=== PATIENT | male | born 1970 | race Caucasian/White ===

== ENCOUNTER → 2016-08-02 | Outpatient (CLI) | payer MEDICARE, OTHER ==
--- NOTE | 2016-08-02 11:17 | RADRPT ---
EXAM DATE/TIME: 08/02/2016 00:00 [facility] COMPARISON: No previous studies available for comparison. INDICATIONS : Dysphagia FLUORO TIME: 3.6 minutes IMAGE COUNT: 0 CONTRAST: Dose as prescribed by speech pathologist. MEDICAL HISTORY : None. SURGICAL HISTORY : None. ENCOUNTER: Initial ACUITY: 1 day PAIN SCORE: Non-responsive. LOCATION: Bilateral esophagus FINDINGS: A modified barium swallow was performed with speech pathology. Patient was given a variety of liquids to swallow. Normal swallowing mechanism. No visualized aspiration. For a full detailed report, see report by the speech pathologist. CONCLUSION: No visualized aspiration.. Carina Mcintosh MD on August 02, 2016 at 11:15 Board Certified Radiologist. This report was verified electronically.
== END ==
LOC: HRAD 10:01
PROVIDERS: ATTEND Family Medicine Geriatric Medicine
DX: R05 Cough (principal)
CPT/HCPCS: 74230; 92611; G8996; G8997

== ENCOUNTER 2017-06-10 12:16 | Emergency (ER) | payer MEDICARE, OTHER ==
[2017-06-10 12:17] VITALS: BP 175/93; PULSE 92; RESP 18; TEMP 97.6; O2SAT 96
[2017-06-10] MEDS ORDERED: CHLO.12%30 SWISH-SPIT (13:24)
--- NOTE | 2017-06-10 13:24 | PD ---
HPI Chief Complaint: Medical Clearance Time Seen by Provider: 12:54 Travel History International Travel<30 days: No Contact w/Intl Traveler<30days: No Traveled to known affect area: No History of Present Illness HPI Social 47-year-old man who presents to the emergency department brought in from his skilled nursing for complaints of oral infection. He is a history of quadriplegia, abdominal bullae, and aspiration. He is G-tube fed. He does not take by mouth intake at all now. Caretakers at the skilled nursing were worried about an infection in the mouth. History Past Medical History Narrative Medical Developed cold-like, quadriplegia, encephalopathic Social History Tobacco Use: No Allergies-Medications (Allergen,Severity, Reaction): Coded Allergies: Quinolones (Verified Allergy, Unknown, 06/10/17) ciprofloxacin (Verified Allergy, Unknown, 06/10/17) levofloxacin (Verified Allergy, Unknown, 06/10/17) Review of Systems ROS Limitations: Clinical Condition Physical Exam Narrative Gen.: 47-year-old man, minimally responsive, in a wheelchair. HEENT: Poor dentition with calcified plaque, marked inflammation of the gingival tissues, no appreciable abscess, no thrush. Data Data Last Documented VS Vital Signs Date Time Temp Pulse Resp B/P (MAP) Pulse Ox O2 Delivery O2 Flow Rate FiO2 06/10/17 12:17 97.6 92 18 175/93 (120) 96 Room Air [facility] Medical Decision Making Medical Screen Exam Complete: Yes Emergency Medical Condition: Yes Differential Diagnosis Gingivitis, abscess, necrotizing ulcerative gingivostomatitis, other Narrative Course Medical decision-making new para 47-year-old man, doesn't take any by mouth intake, severe dental disease with marked gingivitis. No evidence of abscess. Diagnosis Primary Impression: Gingivitis, acute, plaque induced Additional Instructions: [place] teeth twice daily to remove plaque. Use chlorhexidine rinse. You can use an oral hygiene brush to apply it given the patient's condition. I do not see any thrush, or evidence of abscess. Med/Other Pt SpecificInfo: Prescription(s) given Scripts Chlorhexidine Gluconate (Mouth) Liq (Chlorhexidine Gluconate (Mouth) Liq) 0.12% Soln 15 ML SWISH-SPIT BID, #473 ML 0 Refills Use an oral hygiene brush to apply. Prov: Freddy Blum MD 06/10/17 Disposition: 01 DISCHARGE HOME Condition: Stable Freddy Blum MD Jun 10, 2017 13:24
== END 2017-06-10 13:48 | disposition home or self-care (01) ==
LOC: NEPK 12:16
DX: K05.00 Acute gingivitis, plaque induced (principal); G82.50 Quadriplegia, unspecified
CPT/HCPCS: 99283

== ENCOUNTER 2017-06-13 18:55 | Inpatient (IN) | payer MEDICARE, OTHER ==
[~2017-06-13] VITALS: Ht 157.5 cm; Wt 94.0 kg
[~2017-06-13 18:55] MED LIST: CHLO.12%30 SWISH-SPIT
[2017-06-13 18:59] VITALS: BP 165/103; PULSE 77; RESP 14; TEMP 98.8; O2SAT 97
[2017-06-13] MEDS ORDERED: SODIUM CHLORIDE 0.9% FLUSH 10 ML FLUSH IV FLUSH PRN ×2 (19:45→23:15)
[2017-06-13 19:55] VITALS: O2SAT 98
[2017-06-13 19:57] VITALS: BP 156/104; PULSE 78; RESP 16; O2SAT 98
[2017-06-13] MEDS ORDERED: DIATRIZOATE MEGLUM/DIATRIZOATE SOD 9 ML CUP ONE (20:09)
[2017-06-13 20:29] LABS: AUTOMATED NEUTROPHIL # 2.9 TH/MM3 (1.8-7.7); BASOPHIL % 0.5 % (0.0-2.0); EOSINOPHIL # 0.2 TH/MM3 (0-0.4); EOSINOPHIL % 3.9 % (0.0-4.0); HEMO FLAGS DIFF FINAL; LYMPH % 20.2 % (9.0-44.0); MEAN CELL VOLUME 97.9 FL (80.0-100.0); MEAN CORPUSCULAR HEMOGLOBIN 33.6 PG (27.0-34.0); MEAN CORPUSCULAR HGB CONC 34.3 % (32.0-36.0); MONO % 17.9 % (0.0-8.0); NEUT % 57.5 % (16.0-70.0); PLATELET COUNT 309 TH/MM3 (150-450); RED CELL DISTRIBUTION WIDTH 13.1 % (11.6-17.2)
[2017-06-13 20:38] LABS: APTT (PATIENT) 32.1 SEC (24.3-30.1); PROTHROMBIN TIME - PATIENT 10.7 SEC (9.8-11.6)
[2017-06-13 20:50] LABS: ANION GAP 3 MEQ/L (5-15); AST (GOT) 33 U/L (15-37); BLOOD UREA NITROGEN 11 MG/DL (7-18); CHLORIDE 97 MEQ/L (98-107); GLOMERULAR FILTRATION RATE 133 ML/MIN (>89); POTASSIUM 4.4 MEQ/L (3.5-5.1); SODIUM (NA) 131 MEQ/L (136-145)
[2017-06-13 20:54] LABS: ALKALINE PHOSPHATASE 179 U/L (45-117); ALT (GPT) 41 U/L (12-78); TOTAL BILIRUBIN ADULT 0.2 MG/DL (0.2-1.0)
--- NOTE | 2017-06-13 20:56 | RADRPT ---
EXAM DATE/TIME: 06/13/2017 20:21 [facility] COMPARISON: No previous studies available for comparison. INDICATIONS : Cough and congestion. MEDICAL HISTORY : None. SURGICAL HISTORY : None. ENCOUNTER: Initial ACUITY: 3 days PAIN SCORE: Non-responsive. LOCATION: Bilateral chest FINDINGS: There is increased density and loss of delineation of the central bronchopulmonary markings and bilat eral central air bronchograms suggesting either engorged vessels with alveolar edema or bilateral blayne tral infiltrates. The heart is mildly enlarged. Both hemidiaphragms well delineated. CONCLUSION: Bilateral central lung opacities, alveolar edema versus bilateral infiltrates. Ronal Rosales MD on June 13, 2017 at 20:53 Board Certified Radiologist. This report was verified electronically.
[2017-06-13 21:25] LABS: BLOOD, URINE NEG (NEG); COMMENT (UR) CULT NOT INDICATED; CULTURE IF INDICATED CULT NOT INDICATED; GLUCOSE,URINE NEG (NEG); KETONE, URINE NEG (NEG); NITRITE,URINE NEG (NEG); URINE COLOR YELLOW (YELLW/STRAW)
[2017-06-13] MEDS ORDERED: IOHEXOL 350 MG/ML 10 ML VIAL (for RAD DIAG) IVCONTRAST ONE (21:28)
--- NOTE | 2017-06-13 22:05 | RADRPT ---
EXAM DATE/TIME: 06/13/2017 21:24 [facility] COMPARISON: No previous studies available for comparison. INDICATIONS : Abdominal distention. IV CONTRAST: 97 cc Omnipaque 350 (iohexol) IV ORAL CONTRAST: Prescribed oral contrast ingested. RADIATION DOSE: 13.11 CTDIvol (mGy) MEDICAL HISTORY : Non-responsive. SURGICAL HISTORY : Non-responsive. ENCOUNTER: Initial ACUITY: 1 day PAIN SCALE: Non-responsive LOCATION: abdomen TECHNIQUE: Volumetric scanning of the abdomen and pelvis was performed. Using automated exposure control and ad justment of the mA and/or kV according to patient size, radiation dose was kept as low as reasonably achievable to obtain optimal diagnostic quality images. DICOM format image data is available electro nically for review and comparison. FINDINGS: LOWER LUNGS: Mild by basilar atelectasis, right greater than left. LIVER: No biliary ductal dilatation. There is a solitary 12 mm hypodense lesion in the central right lobe w ith mean CT density of 45 Hounsfield units. No calcified gallstones. SPLEEN: Normal size without lesion. PANCREAS: Within normal limits. KIDNEYS: Normal in size and shape. There is no mass, stone or hydronephrosis. ADRENAL GLANDS: Within normal limits. VASCULAR: There is no aortic aneurysm. BOWEL/MESENTERY: Percutaneous gastrostomy tube in place. Oral contrast passes through the least half of the small bow el. No dilated loops of small bowel. There is prominent distention of the colon with fluid in the l umen down to the sigmoid region. In the sigmoid, there are 2 areas with luminal narrowing, the 1st m easures 3.8 cm in length and the 2nd is at the distal sigmoid with the colon nondistended from that p oint on. The appearance suggests 2 focal areas of luminal narrowing, possibly synchronous tumors. ABDOMINAL WALL: Within normal limits. RETROPERITONEUM: There is no lymphadenopathy. BLADDER: Smooth margins. The urinary bladder does extend into the left inguinal hernia. REPRODUCTIVE: Within normal limits. INGUINAL: Left-sided inguinal hernia with herniation of a portion of the urinary bladder. MUSCULOSKELETAL: Severe curvature of the lumbar spine convex left with associated hypertrophic changes in the posterio r elements of lower lumbar spine. CONCLUSION: 1. Abnormal appearance to the distal colon with 2 focal areas of luminal narrowing and significant di stention of the colon proximal. Findings suggest the possibility of synchronous tumors or inflammato ry strictures. 2. No dilated loops of small bowel. 3. Left inguinal hernia with herniation of a portion of the urinary bladder. Ronal Rosales MD on June 13, 2017 at 21:54 Board Certified Radiologist. This report was verified electronically.
[2017-06-13] MEDS ORDERED: CEFEPIME INJ 2,000 MG in SODIUM CHLORIDE 0.9% INJ 100 ML IV ONE (22:15)
[2017-06-13] MEDS ORDERED: VANCOMYCIN INJ 1,250 MG in SODIUM CHLOR 0.9% 250 ML INJ 250 ML IV ONE (22:15)
--- NOTE | 2017-06-13 22:49 | PD ---
HPI Chief Complaint: Medical Clearance Time Seen by Provider: 19:29 Travel History International Travel<30 days: No Contact w/Intl Traveler<30days: No Traveled to known affect area: No History of Present Illness HPI Patient is a 47-year-old male, nonverbal, brought in from his living facility because he seems to be grimacing when they feed him through his feeding tube. Patient is unable to provide history. The staff member with him also does not provide much history. He did have an x-ray of his abdomen done that is concerning for ileus versus obstruction. PFSH Social History Alcohol Use: No Tobacco Use: No Substance Use: No Allergies-Medications (Allergen,Severity, Reaction): Coded Allergies: Quinolones (Verified Allergy, Unknown, 06/13/17) ciprofloxacin (Verified Allergy, Unknown, 06/13/17) levofloxacin (Verified Allergy, Unknown, 06/13/17) Reported Meds & Prescriptions Reported Meds & Active Scripts Active Chlorhexidine Gluconate (Mouth) Liq (Chlorhexidine Gluconate) 0.12% Soln 15 Ml SWISH-SPIT BID Use an oral hygiene brush to apply. Review of Systems ROS Limitations: Clinical Condition Physical Exam Narrative GENERAL: Patient is awake, nonverbal, does not interact. SKIN: Focused skin assessment warm/dry. No signs of infection. HEAD: Atraumatic. Normocephalic. EYES: Pupils equal and round. No scleral icterus. Extraocular movements intact. ENT: Mucous membranes pink and moist. NECK: Trachea midline. No JVD. CARDIOVASCULAR: Regular rate and rhythm. No murmur appreciated. RESPIRATORY: No accessory muscle use. Clear to auscultation. Breath sounds equal bilaterally. GASTROINTESTINAL: Abdomen distended, high-pitched bowel sounds present. G-tube in place. MUSCULOSKELETAL: No obvious deformities. No clubbing. No cyanosis. No edema. NEUROLOGICAL: Awake and alert. Quadriplegic. Data Data Last Documented VS Vital Signs Date Time Temp Pulse Resp B/P (MAP) Pulse Ox O2 Delivery O2 Flow Rate FiO2 06/13/17 19:57 78 16 156/104 (121) 98 06/13/17 18:59 98.8 Orders Orders Complete Blood Count With Diff (06/13/17 19:40) Comprehensive Metabolic Panel (06/13/17 19:40) Lactic Acid (06/13/17 19:40) Prothrombin Time / Inr (Pt) (06/13/17 19:40) Act Partial Throm Time (Ptt) (06/13/17 19:40) Urinalysis - C+S If Indicated (06/13/17 19:40) Ct Abd/Pel W Iv Contrast(Rout) (06/13/17 19:40) Iv Access Insert/Monitor (06/13/17 19:40) Ecg Monitoring (06/13/17 19:40) Oximetry (06/13/17 19:40) Sodium Chloride 0.9% Flush (Ns Flush) (06/13/17 19:45) Chest, Single Ap (06/13/17 ) Oral Contrast - Adult (06/13/17 19:57) Diatrizoate Liq ( Gastroview Liq) (06/13/17 20:09) Cath For Specimen (06/13/17 20:25) Iohexol 350 Inj (Omnipaque 350 Inj) (06/13/17 21:28) Cefepime Inj (Maxipime Inj) (06/13/17 22:15) Vancomycin Inj (Vancomycin Inj) (06/13/17 22:15) Labs Laboratory Tests Test 06/13/17 20:06 06/13/17 21:05 White Blood Count 5.0 TH/MM3 Red Blood Count 5.10 MIL/MM3 Hemoglobin 17.1 GM/DL Hematocrit 50.0 % Mean Corpuscular Volume 97.9 FL Mean Corpuscular Hemoglobin 33.6 PG Mean Corpuscular Hemoglobin Concent 34.3 % Red Cell Distribution Width 13.1 % Platelet Count 309 TH/MM3 Mean Platelet Volume 9.4 FL Neutrophils (%) (Auto) 57.5 % Lymphocytes (%) (Auto) 20.2 % Monocytes (%) (Auto) 17.9 % Eosinophils (%) (Auto) 3.9 % Basophils (%) (Auto) 0.5 % Neutrophils # (Auto) 2.9 TH/MM3 Lymphocytes # (Auto) 1.0 TH/MM3 Monocytes # (Auto) 0.9 TH/MM3 Eosinophils # (Auto) 0.2 TH/MM3 Basophils # (Auto) 0.0 TH/MM3 CBC Comment DIFF FINAL Differential Comment Prothrombin Time 10.7 SEC Prothromb Time International Ratio 1.0 RATIO Activated Partial Thromboplast Time 32.1 SEC Blood Urea Nitrogen 11 MG/DL Creatinine 0.64 MG/DL Random Glucose 109 MG/DL Total Protein 8.7 GM/DL Albumin 3.7 GM/DL Calcium Level 9.0 MG/DL Alkaline Phosphatase 179 U/L Aspartate Amino Transf (AST/SGOT) 33 U/L Alanine Aminotransferase (ALT/SGPT) 41 U/L Total Bilirubin 0.2 MG/DL Sodium Level 131 MEQ/L Potassium Level 4.4 MEQ/L Chloride Level 97 MEQ/L Carbon Dioxide Level 31.0 MEQ/L Anion Gap 3 MEQ/L Estimat Glomerular Filtration Rate 133 ML/MIN Lactic Acid Level 1.5 mmol/L Urine Color YELLOW Urine Turbidity HAZY Urine pH 8.0 Urine Specific [place] 1.009 Urine Protein NEG mg/dL Urine Glucose (UA) NEG mg/dL Urine Ketones NEG mg/dL Urine Occult Blood NEG Urine Nitrite NEG Urine Bilirubin NEG Urine Urobilinogen LESS THAN 2.0 MG/DL Urine Leukocyte Esterase NEG Urine WBC 1 /hpf Microscopic Urinalysis Comment CULT NOT INDICATED MDM Medical Decision Making Medical Screen Exam Complete: Yes Emergency Medical Condition: Yes Medical Record Reviewed: Yes Differential Diagnosis Small bowel obstruction versus constipation versus ileus versus UTI Narrative Course Patient is a 47-year-old male who comes in from his long term because he seems to be grimacing when they pushed for age through his G-tube. Exam shows a very large distended abdomen with high-pitched bowel sounds. IV established, labs sent. Labs show no acute abnormalities. X-rays concerning for bilateral pneumonia versus pulmonary edema. Staff does say he is having a lot of congestion lately and they've been suctioning him often. He is covered with antibiotics for pneumonia. CT of the abdomen and pelvis performed shows distended large bowel with possible tumors in the sigmoid colon. Patient will be admitted for further management. Diagnosis Primary Impression: Pneumonia Qualified Codes: J18.9 - Pneumonia, unspecified organism Additional Impression: Large bowel obstruction Admitting Information Admitting Physician Requests: Admit Karishma Gordillo MD Jun 13, 2017 22:49
[2017-06-13] MEDS ORDERED: DIFL100T PEG ×2 (23:06)
[2017-06-13] MEDS ORDERED: IPRASOL INH ×2 (23:06)
[2017-06-13] MEDS ORDERED: protein powder ×2 (23:06)
[2017-06-13] MEDS ORDERED: THERTAB17 PEG ×2 (23:06)
[2017-06-13] MEDS ORDERED: PHEN-524 PO ×2 (23:06)
[2017-06-13] MEDS ORDERED: POLY99.0 EACH EYE ×2 (23:06)
[2017-06-13] MEDS ORDERED: CETI10CH PEG ×2 (23:06)
[2017-06-13] MEDS ORDERED: CRANCAP2 PEG ×2 (23:06)
[2017-06-13] MEDS ORDERED: CALTCHW5 PEG ×2 (23:06)
[2017-06-13] MEDS ORDERED: POLY17S PEG ×2 (23:06)
[2017-06-13] MEDS ORDERED: SUDO4TAB PEG ×2 (23:06)
[2017-06-13] MEDS ORDERED: LOPE2CAP PO ×2 (23:06)
[2017-06-13] MEDS ORDERED: PHEN125S PEG ×2 (23:06)
[2017-06-13] MEDS ORDERED: SUDO60TA2 PEG ×2 (23:06)
[2017-06-13] MEDS ORDERED: LAMO100T PO ×2 (23:06)
[2017-06-13] MEDS ORDERED: PEPT262S PO ×2 (23:06)
[2017-06-13] MEDS ORDERED: ANTASUS13 PO ×2 (23:06)
[2017-06-13] MEDS ORDERED: LACTULOSE SYRUP 20 GM/30 ML CUP PO PRN (23:15)
[2017-06-13] MEDS ORDERED: Vancomycin Consult Pharmacy 1 EA OTHER SCH (23:15)
[2017-06-13] MEDS ORDERED: MORPHINE SULFATE 4 MG/ML INJ IV PUSH PRN ×2 (23:15)
[2017-06-13] MEDS ORDERED: ACETAMINOPHEN 1000 MG/100 ML 100 ML IV PRN (23:15)
[2017-06-13] MEDS ORDERED: MAGNESIUM HYDROXIDE SUSP 30 ML CUP PO PRN (23:15)
[2017-06-13] MEDS ORDERED: BISACODYL 10 MG SUPP RECTAL PRN (23:15)
[2017-06-13] MEDS ORDERED: SENNOSIDES 8.6 MG TAB PO PRN (23:15)
--- NOTE | 2017-06-13 23:16 | HHI.HP ---
HPI Service [facility] Yousuf Alonso MD Admission Diagnosis Large bowel obstruction, pneumonia Diagnoses: (1) Large bowel obstruction Diagnosis: Principal (2) PNA (pneumonia) Diagnosis: Principal (3) Seizure disorder Diagnosis: [place] Travel History International Travel<30 Days: No Contact w/Intl Traveler <30 Da: No Traveled to Known Affected Are: No History of Present Illness This is a 47-year-old male with a PMH of Quadriplegia, Nonverbal, s/p PEG and Seizure Disorder who was sent to the ER from [facility] secondary to concern for possible bowel obstruction. Unable to obtain history from patient. Per staff, pt noted to be grimacing when meds pushed through PEG tube , also report no BM for 2-3 days. Outpatient X-ray w/ concern for ileus vs obstruction. On arrival, BP 65/103, HR 77, O2 sat 97% on RA, Afebrile. CBC unremarkable. Chemistry essentially unremarkable. Lactic Acid normal. INR 1.0. UA negative. CXR with bilateral central lung opacities. CT Abd/Pelvis w / abnormal appearance to the distal colon with 2 focal areas of luminal narrowing and significant distention of the colon, findings suggest possibility of synchronous tumors or inflammatory strictures, no dilated loops of small bowel, left inguinal hernia with herniation of a portion of the urinary bladder. S/p Vanc/Cefepime in ER. Review of Systems Except as stated in HPI: all other systems reviewed are Neg ROS: Unable to obtain secondary to nonverbal state. Past Family Social History Past Medical History PMH: Quadriplegia, Nonverbal, s/p PEG and Seizure Disorder Past Surgical History PAST SURGICAL HISTORY: Unknown Allergies: Coded Allergies: Quinolones (Verified Allergy, Unknown, 06/13/17) ciprofloxacin (Verified Allergy, Unknown, 06/13/17) levofloxacin (Verified Allergy, Unknown, 06/13/17) Family History PAST FAMILY HISTORY: Reviewed. No h/o DM or CAD Social History PAST SOCIAL HISTORY: Negative for alcohol, tobacco or drugs. Physical Exam Vital Signs Vital Signs Date Time Temp Pulse Resp B/P (MAP) Pulse Ox O2 Delivery O2 Flow Rate FiO2 06/13/17 19:57 78 16 156/104 (121) 98 06/13/17 19:55 98 06/13/17 18:59 98.8 77 14 165/103 (123) 97 Physical Exam PE: GENERAL: Middle-aged white male in no acute distress. Quadriplegia HEENT: PERRLA, EOMI. No scleral icterus or conjunctival pallor. No lid lag or facial droop. CARDIOVASCULAR: Regular rate and rhythm. No obvious murmurs to auscultation. No chest tenderness to palpation. RESPIRATORY: No obvious rhonchi or wheezing. Clear to auscultation. Breath sounds equal bilaterally. GASTROINTESTINAL: Abdomen soft, non-tender, +distended. BS normal. PEG tube in place. MUSCULOSKELETAL: Extremities without clubbing, cyanosis, or edema. No obvious deformities. NEUROLOGICAL: Awake, alert and oriented x4. No focal neurologic deficits. Moving both upper and lower extremities spontaneously. Laboratory Laboratory Tests Test 06/13/17 20:06 06/13/17 21:05 White Blood Count 5.0 Red Blood Count 5.10 Hemoglobin 17.1 Hematocrit 50.0 Mean Corpuscular Volume 97.9 Mean Corpuscular Hemoglobin 33.6 Mean Corpuscular Hemoglobin Concent 34.3 Red Cell Distribution Width 13.1 Platelet Count 309 Mean Platelet Volume 9.4 Neutrophils (%) (Auto) 57.5 Lymphocytes (%) (Auto) 20.2 Monocytes (%) (Auto) 17.9 Eosinophils (%) (Auto) 3.9 Basophils (%) (Auto) 0.5 Neutrophils # (Auto) 2.9 Lymphocytes # (Auto) 1.0 Monocytes # (Auto) 0.9 Eosinophils # (Auto) 0.2 Basophils # (Auto) 0.0 CBC Comment DIFF FINAL Differential Comment Prothrombin Time 10.7 Prothromb Time International Ratio 1.0 Activated Partial Thromboplast Time 32.1 Blood Urea Nitrogen 11 Creatinine 0.64 Random Glucose 109 Total Protein 8.7 Albumin 3.7 Calcium Level 9.0 Alkaline Phosphatase 179 Aspartate Amino Transf (AST/SGOT) 33 Alanine Aminotransferase (ALT/SGPT) 41 Total Bilirubin 0.2 Sodium Level 131 Potassium Level 4.4 Chloride Level 97 Carbon Dioxide Level 31.0 Anion Gap 3 Estimat Glomerular Filtration Rate 133 Lactic Acid Level 1.5 Urine Color YELLOW Urine Turbidity HAZY Urine pH 8.0 Urine Specific [place] 1.009 Urine Protein NEG Urine Glucose (UA) NEG Urine Ketones NEG Urine Occult Blood NEG Urine Nitrite NEG Urine Bilirubin NEG Urine Urobilinogen LESS THAN 2.0 Urine Leukocyte Esterase NEG Urine WBC 1 Microscopic Urinalysis Comment CULT NOT INDICATED Result Diagram: 06/13/17200506/13/172005 Caprini VTE Risk Assessment Caprini VTE Risk Assessment: Mod/High Risk (score >= 2) Caprini Risk Assessment Model Point Value = 1 Point Value = 2 Point Value = 3 Point Value = 5 Age 41-60 Minor surgery BMI > 25 kg/m2 Swollen legs Varicose veins or History of unexplained or recurrent spontaneous Oral contraceptives or hormone replacement Sepsis (< 1 month) Serious lung disease, including pneumonia (< 1 month) Abnormal pulmonary function Acute myocardial infarction Congestive heart failure (< 1 month) History of inflammatory bowel disease Medical patient at bed rest Age 61-74 Arthroscopic surgery Major open surgery (> 45 min) Laparoscopic surgery (> 45 min) Malignancy Confined to bed (> 72 hours) Immobilizing plaster cast Central venous access Age >= 75 History of VTE Family history of VTE Factor V Leiden Prothrombin [id number] Lupus anticoagulant Anticardiolipin antibodies Elevated serum homocysteine Heparin-induced thrombocytopenia Other congenital or acquired thrombophilia Stroke (< 1 month) Elective arthroplasty Hip, pelvis, or leg fracture Acute spinal cord injury (< 1 month) Prophylaxis Regimen Total Risk Factor Score Risk Level Prophylaxis Regimen 0-1 Low Early ambulation 2 Moderate Order ONE of the following: *Sequential Compression Device (SCD) *Heparin 5000 units SQ BID 3-4 Higher Order ONE of the following medications: *Heparin 5000 units SQ TID *Enoxaparin/Lovenox 40 mg SQ daily (WT < 150 kg, CrCl > 30 mL/min) *Enoxaparin/Lovenox 30 mg SQ daily (WT < 150 kg, CrCl > 10-29 mL/min) *Enoxaparin/Lovenox 30 mg SQ BID (WT < 150 kg, CrCl > 30 mL/min) AND/OR *Sequential Compression Device (SCD) 5 or more Highest Order ONE of the following medications: *Heparin 5000 units SQ TID (Preferred with Epidurals) *Enoxaparin/Lovenox 40 mg SQ daily (WT < 150 kg, CrCl > 30 mL/min) *Enoxaparin/Lovenox 30 mg SQ daily (WT < 150 kg, CrCl > 10-29 mL/min) *Enoxaparin/Lovenox 30 mg SQ BID (WT < 150 kg, CrCl > 30 mL/min) AND *Sequential Compression Device (SCD) Assessment and Plan Problem List: (1) Large bowel obstruction ICD Code: K56.609 - Unspecified intestinal obstruction, unspecified as to partial versus complete obstruction Status: Acute (2) PNA (pneumonia) ICD Code: J18.9 - Pneumonia, unspecified organism (3) Seizure disorder ICD Code: G40.909 - Epilepsy, unspecified, not intractable, without status epilepticus Assessment and Plan A/P: 1. Large Bowel Obstruction: Outpatient X-ray w/ ileus vs obstruction, no BM x2 -[address] Abd/Pelvis w/ 2 focal areas of narrowing w/ significant distention in the colon, possible synchronous tumors or inflammatory strictures, no small bowel dilatation, +left inguinal hernia w/ herniation of portion of bladder, images reviewed by me. NPO, will convert all possible meds to IV, Hold Tube Feeds, IVF, Consult Gen Sx/GI for further evaluation. 2. PNA: CXR w/ bilateral central lung opacities, s/p Vanc/Cefepime in ER. Continue w/ IV Abx, DuoNeb, pulmonary toilet. 3. Seizure Disorder: Chronic. Convert PO medications to IV where possible. Ativan prn. 4. DVT Prophylaxis: SCD/Teds. 5. Social work for d/c planning as needed. 6. Case discussed w/ ER physician at length. Physician Certification 2 Midnight Certification Type: Admission for Inpatient Services Order for Inpatient Services The services are ordered in accordance with Medicare regulations or non- Medicare payer requirements, as applicable. In the case of services not specified as inpatient-only, they are appropriately provided as inpatient services in accordance with the 2-midnight benchmark. Estimated LOS (days): 2 days is the estimated time the patient will need to remain in the hospital, assuming treatment plan goals are met and no additional complications. Post-Hospital Plan: Not yet determined Melida Jung MD Jun 13, 2017 23:16
[2017-06-13] MEDS: SODIUM CHLOR 0.9% 1000 ML INJ 1,000 ML IV SCH (23:43)
[2017-06-13 23:55] VITALS: BP 158/89; PULSE 82; RESP 14; O2SAT 98
[2017-06-14 01:27] VITALS: BP 182/87; PULSE 81; RESP 20; TEMP 95.5; O2SAT 97
[2017-06-14 04:00] VITALS: BP 149/90; PULSE 89; RESP 20; TEMP 96.4; O2SAT 99
[2017-06-14 07:08] LABS: AUTOMATED NEUTROPHIL # 3.7 TH/MM3 (1.8-7.7); BASOPHIL # 0.1 TH/MM3 (0-0.2); BASOPHIL % 0.9 % (0.0-2.0); EOSINOPHIL # 0.3 TH/MM3 (0-0.4); EOSINOPHIL % 3.8 % (0.0-4.0); HEMATOCRIT 47.8 % (39.0-51.0); HEMO FLAGS DIFF FINAL; LYMPH % 22.2 % (9.0-44.0); LYMPHOCYTE # 1.4 TH/MM3 (1.0-4.8); MEAN CELL VOLUME 97.5 FL (80.0-100.0); MEAN CORPUSCULAR HEMOGLOBIN 33.6 PG (27.0-34.0); MEAN CORPUSCULAR HGB CONC 34.5 % (32.0-36.0); NEUT % 57.1 % (16.0-70.0); PLATELET COUNT 306 TH/MM3 (150-450); RED BLOOD COUNT 4.91 MIL/MM3 (4.50-5.90); RED CELL DISTRIBUTION WIDTH 13.2 % (11.6-17.2); WHITE BLOOD COUNT 6.5 TH/MM3 (4.0-11.0)
[2017-06-14 07:30] LABS: ALKALINE PHOSPHATASE 182 U/L (45-117); TOTAL BILIRUBIN ADULT 0.2 MG/DL (0.2-1.0)
[2017-06-14 07:45] LABS: ALT (GPT) 41 U/L (12-78); ANION GAP 6 MEQ/L (5-15); AST (GOT) 31 U/L (15-37); BICARBONATE 27.6 MEQ/L (21.0-32.0); BLOOD UREA NITROGEN 8 MG/DL (7-18); CHLORIDE 102 MEQ/L (98-107); GLOMERULAR FILTRATION RATE 185 ML/MIN (>89); POTASSIUM 4.2 MEQ/L (3.5-5.1); SODIUM (NA) 136 MEQ/L (136-145)
[2017-06-14 08:00] VITALS: BP 130/76; PULSE 89; RESP 17; TEMP 95.4; O2SAT 97
[2017-06-14] MEDS: CEFEPIME INJ 1,000 MG in SODIUM CHLORIDE 0.9% INJ 100 ML IV SCH ×2 (08:31→20:42)
[2017-06-14] MEDS: DOCUSATE SODIUM 50 MG/SENNA 8.6 MG TAB PO SCH ×2 (08:31→20:43)
[2017-06-14] MEDS: SODIUM CHLORIDE 0.9% FLUSH 10 ML FLUSH IV FLUSH SCH ×2 (08:31→20:42)
[2017-06-14] MEDS: PHENobarbital SOD 130 MG/ML VIAL IM SCH (08:31)
[2017-06-14] MEDS: SODIUM CHLOR 0.9% 1000 ML INJ 1,000 ML IV SCH ×2 (09:13→20:41)
[2017-06-14 12:00] VITALS: BP 159/87; PULSE 86; RESP 17; TEMP 95.1; O2SAT 96
--- NOTE | 2017-06-14 12:05 | HHI.PR ---
Subjective Remarks Pt is non verbal. unable to obtain any information. however he does look like he is smiling. Objective Vitals Vital Signs Date Time Temp Pulse Resp B/P (MAP) Pulse Ox O2 Delivery O2 Flow Rate FiO2 06/14/17 08:00 95.4 89 17 130/76 (94) 97 06/14/17 04:00 96.4 89 20 149/90 (109) 99 06/14/17 01:27 95.5 81 20 182/87 (118) 97 06/14/17 01:12 06/13/17 23:55 82 14 158/89 (112) 98 06/13/17 19:57 78 16 156/104 (121) 98 06/13/17 19:55 98 06/13/17 18:59 98.8 77 14 165/103 (123) 97 I/O 06/13/17 06/13/17 06/13/17 06/14/17 06/14/17 06/14/17 06:59 14:59 22:59 06:59 14:59 22:59 Intake Total 1202 ml 500 ml Balance 1202 ml 500 ml Intake Oral 240 ml IV Total 962 ml 500 ml # Voids 2 Result Diagram: 06/14/17 0520 06/14/17 0520 Imaging Last Impressions Abdomen/Pelvis CT 06/13/17 1940 Signed Impressions: Service Date/Time: Tuesday, June 13, 2017 21:24 - CONCLUSION: 1. Abnormal appearance to the distal colon with 2 focal areas of luminal narrowing and significant distention of the colon proximal. Findings suggest the possibility of synchronous tumors or inflammatory strictures. 2. No dilated loops of small bowel. 3. Left inguinal hernia with herniation of a portion of the urinary bladder. Ronal Rosales MD Chest X-Ray 06/13/17 0000 Signed Impressions: Service Date/Time: Tuesday, June 13, 2017 20:21 - CONCLUSION: Bilateral central lung opacities, alveolar edema versus bilateral infiltrates. Ronal Rosales MD Objective Remarks GENERAL: Middle-aged white male in no acute distress. Quadriplegia, non verbal. HEENT: EOMI. CARDIOVASCULAR: Regular rate and rhythm. No obvious murmurs to auscultation. RESPIRATORY: No wheezing. Clear to auscultation. Breath sounds equal bilaterally. GASTROINTESTINAL: Abdomen soft, non-tender, +distended. hypoactive bowel sounds , abdominal binder in place. PEG tube in place. MUSCULOSKELETAL: Extremities without edema. No obvious deformities. NEUROLOGICAL: Awake. non verbal A/P Problem List: (1) Large bowel obstruction ICD Code: K56.609 - Unspecified intestinal obstruction, unspecified as to partial versus complete obstruction Status: Acute (2) PNA (pneumonia) ICD Code: J18.9 - Pneumonia, unspecified organism (3) Seizure disorder ICD Code: G40.909 - Epilepsy, unspecified, not intractable, without status epilepticus Assessment and Plan 1. Large Bowel Obstruction: Outpatient X-ray w/ ileus vs obstruction, no BM x2 -[address] Abd/Pelvis w/ 2 focal areas of narrowing w/ significant distention in the colon, possible synchronous tumors or inflammatory strictures, no small bowel dilatation, +left inguinal hernia w/ herniation of portion of bladder, images reviewed by me. NPO, meds converted to IV, Hold Tube Feeds, IVF, Gen Sx consult in place. awaiting their recs. 2. PNA: CXR w/ bilateral central lung opacities, s/p Vanc/Cefepime in ER. Continue w/ IV Abx, DuoNeb, pulmonary toilet. 3. Seizure Disorder: Chronic. Convert PO medications to IV where possible. Ativan prn. 4. DVT Prophylaxis: SCD/Teds. Discharge Planning awaiting GS consult and recs Leelee Salvador MD Jun 14, 2017 12:05
[2017-06-14] MEDS: VANCOMYCIN INJ 1,250 MG in SODIUM CHLOR 0.9% 250 ML INJ 250 ML IV SCH (12:50)
[2017-06-14 16:00] VITALS: BP 133/89; PULSE 85; RESP 17; TEMP 95.4; O2SAT 98
--- NOTE | 2017-06-14 16:21 | MB ---
cc: LEELEE SALVADOR ANDREW DATE OF CONSULTATION: 06/14/2017. REASON FOR CONSULTATION: Possible colitis with possible stricture on CT scan. PHYSICIAN REQUESTING THE CONSULTATION: Dr. Leelee Salvador. HISTORY OF PRESENT ILLNESS: The patient is a 47-year-old male with a chronic decreased mental state and history of quadriplegia who was sent to [facility] for concern for abdominal distention. The patient lives at [facility], and per the chart states that the patient was grimacing when medications were pushed through his tube and he has had no bowel movements for the last two or three days. In the emergency department, the patient was evaluated and found to have a distended abdomen. CT scan was performed and did show a dilated colon and two areas of narrowing with no masses. There is no ischemia or perforation or acute process noted. Surgery was consulted. The patient is currently on IV fluids, IV antibiotics and is NPO. REVIEW OF SYSTEMS, PAST MEDICAL HISTORY, PAST SURGICAL HISTORY, ALLERGIES, HOME MEDICATIONS, FAMILY HISTORY AND SOCIAL HISTORY: All unable to be obtained from the patient with altered mental status. PAST MEDICAL HISTORY: From the chart, the patient appears to have a past medical history of: 1. Quadriplegia. 2. Seizure disorder. ALLERGIES: PER THE CHART, HE HAS AN ALLERGY TO QUINOLONES. PHYSICAL EXAMINATION: VITAL SIGNS: Temperature 95.1, blood pressure 159/87, 02 saturations 98% on room air, heart rate 86, respiratory rate 17. GENERAL: The patient is a chronically ill bedridden patient with contractures in the hospital bed. HEAD, EYES, EARS, NOSE, THROAT: Head is normocephalic and atraumatic. The sclerae are nonicteric. The oral cavity is clear. RESPIRATORY: Breaths are clear and nonlabored. Trachea is midline. Airway is patent. Nonlabored breathing pattern. NECK: The neck is supple. No jugular venous distention. HEART: Regular rate and rhythm. No murmurs. ABDOMEN: Abdomen soft and mildly distended and tympanic. The patient does respond to abdominal exam, although this is not necessarily painful. He does have decreased bowel sounds. A PEG-tube is in place in the left upper quadrant in normal anatomic position but no evidence of any complication. EXTREMITIES: Contractured. NEUROLOGIC: Not cooperative with the neurologic exam. He does not respond to verbal stimuli. LABORATORY STUDIES: White blood cell count 5.0, hemoglobin is 17. Urinalysis is negative. ASSESSMENT AND PLAN: The patient is a 47-year-old male who his chronically debilitated physically and mentally who has abdominal distention. CT scan with dilated colon with liquid contents. There was concern for possible narrowing at two areas of the colon. The patient has had multiple bowel movements since admission with no nausea or vomiting. Unclear about the etiology of this patient's problem. I do not feel the patient has any acute surgical process but clearly has an abnormality clinically. Recommend placing a G-tube to gravity drainage to decompress any potential obstruction or ileus. I agree with antibiotic therapy. Will also check any bowel movements for evidence of infection or C. difficile. I recommend a gastroenterology consultation for possible endoscopic evaluation. Direct visualization will rule out malignancy, obstruction or possibly shed light as to the exact etiology of this patient's diagnosis. We will follow along with the patient. I will continue serial abdominal examinations. Thank you very much for this consultation. MD RELL Kay/DARYL /2:32 PM /3:58 PM
[2017-06-14 20:00] VITALS: BP 171/79; PULSE 85; RESP 17; TEMP 96.5; O2SAT 97
[2017-06-14] MEDS: PHENYTOIN INJ 100 MG/2 ML VIAL IV PUSH SCH (20:42)
[2017-06-14] MEDS: lamoTRIgine 100 MG TAB PO SCH (20:43)
[2017-06-15] VITALS: BP 141/91; PULSE 91; RESP 17; TEMP 97.3; O2SAT 99
[2017-06-15] MEDS: VANCOMYCIN INJ 1,250 MG in SODIUM CHLOR 0.9% 250 ML INJ 250 ML IV SCH ×3 (00:04→23:49)
[2017-06-15] MEDS: SODIUM CHLOR 0.9% 1000 ML INJ 1,000 ML IV SCH ×3 (03:50→23:49)
[2017-06-15 08:00] VITALS: BP 184/96; PULSE 90; RESP 15; TEMP 96.8; O2SAT 97
[2017-06-15 08:11] LABS: BICARBONATE 24.6 MEQ/L (21.0-32.0); MAGNESIUM 1.8 MG/DL (1.5-2.5); POTASSIUM 4.3 MEQ/L (3.5-5.1)
[2017-06-15] MEDS: CEFEPIME INJ 1,000 MG in SODIUM CHLORIDE 0.9% INJ 100 ML IV SCH ×2 (08:47→20:23)
[2017-06-15] MEDS: SODIUM CHLORIDE 0.9% FLUSH 10 ML FLUSH IV FLUSH SCH ×2 (08:48→20:23)
[2017-06-15] MEDS: PHENobarbital SOD 130 MG/ML VIAL IM SCH (08:48)
[2017-06-15] MEDS: DOCUSATE SODIUM 50 MG/SENNA 8.6 MG TAB PO SCH ×2 (08:50→20:23)
[2017-06-15] MEDS ORDERED: cloNIDine HCL 0.1 MG TAB PO PRN (09:00)
[2017-06-15] MEDS ORDERED: ENALAPRILAT 1.25 MG/ML VIAL IV PUSH PRN (09:00)
--- NOTE | 2017-06-15 11:02 | PD.CONS ---
HPI History of Present Illness This is a 47 year old male who presented to the ER from [facility] with concern for possible bowel obstruction. PMH significant for chronic decreased mental state, quadriplegia, nonverbal, s/p PEG, and seizure disorder. Per staff at alf, patient was grimacing when medication was pushed through his PEG tube and reports of no bowel movement in last 2-[address] Abdomen/Pelvis showed abnormal appearance to the distal colon with 2 focal areas of luminal narrowing and significant distention of the colon, findings suggest possibility of synchronous tumors or inflammatory strictures, no dilated loops of small bowel, left inguinal hernia with herniation of a portion of the urinary bladder. Patient has had 7 reported bowel movements over past 1- 2 days. (Jacki Ferguson) PFSH Past Medical History -Quadriplegia -Nonverbal, -PEG -Seizure Disorder Past Surgical History PEG placement (Jacki Ferguson) Coded Allergies: Quinolones (Verified Allergy, Unknown, 06/13/17) ciprofloxacin (Verified Allergy, Unknown, 06/13/17) levofloxacin (Verified Allergy, Unknown, 06/13/17) Medications Current Medications Medications (Trade) Dose Ordered Sig/Tin Route PRN Reason Start Time Stop Time Status Last Admin Dose Admin Pharmacy Profile Note 0 ml @ 0 mls/hr UNSCH OTHER 06/13/17 23:15 Cefepime HCl 1000 mg/Sodium Chloride 100 ml @ 200 mls/hr Q12H IV 06/14/17 09:00 06/15/17 08:47 Sodium Chloride 1,000 ml @ 100 mls/hr Q10H IV 06/13/17 23:13 06/15/17 03:50 Sodium Chloride (NS Flush) 2 ml UNSCH PRN IV FLUSH FLUSH AFTER USING IV ACCESS 06/13/17 23:15 Sodium Chloride (NS Flush) 2 ml BID IV FLUSH 06/14/17 09:00 Morphine Sulfate (Morphine Inj) 1 mg Q3H PRN IV PUSH Pain 3-5 06/13/17 23:15 Morphine Sulfate (Morphine Inj) 2 mg Q3H PRN IV PUSH Pain 6-10 06/13/17 23:15 Acetaminophen 100 ml @ 400 mls/hr Q6H PRN IV FEVER 06/13/17 23:15 Senna/Docusate Sodium (Celina-Colace) 1 tab BID PO 06/14/17 09:00 Magnesium Hydroxide (Milk Of Magnesia Liq) 30 ml Q12H PRN PO Mild constipation 06/13/17 23:15 Sennosides (Senokot) 17.2 mg Q12H PRN PO Moderate constipation 06/13/17 23:15 Bisacodyl (Dulcolax Supp) 10 mg DAILY PRN RECTAL SEVERE CONSITIPATION 06/13/17 23:15 Lactulose (Lactulose Liq) 30 ml DAILY PRN PO SEVERE CONSITIPATION 06/13/17 23:15 Phenobarbital Sodium (Luminal Inj) 130 mg DAILY IM 06/14/17 09:00 06/15/17 08:48 Phenytoin Sodium (Dilantin Inj) 100 mg HS IV PUSH 06/14/17 21:00 06/14/17 20:42 Lamotrigine (LaMICtal) 300 mg HS PO 06/14/17 21:00 06/14/17 20:43 Miscellaneous Information SPECIFIC LAB TO BE DRAWN:VANCO DATE TO... ONCE ONCE .XX 06/15/17 12:45 06/15/17 12:46 Vancomycin HCl 1250 mg/Sodium Chloride 262.5 ml @ 250 mls/hr Q12H IV 06/14/17 13:00 06/15/17 00:04 Enalaprilat (Vasotec Inj) 1.25 mg Q6H PRN IV PUSH SBP>160, DBP>90 06/15/17 09:00 06/15/17 09:27 Clonidine (Catapres) 0.1 mg Q6H PRN PO SBP> OR = 180, DBP> OR = 100 06/15/17 09:00 Family History Non contributory Social History Negative for alcohol, tobacco or drugs. (Jacki Ferguson) Review of Systems ROS Patient nonverbal (Jacki Ferguson) GI Exam Vitals I&O Vital Signs Date Time Temp Pulse Resp B/P (MAP) Pulse Ox O2 Delivery O2 Flow Rate FiO2 06/15/17 08:00 96.8 90 15 184/96 (125) 97 06/15/17 00:00 97.3 91 17 141/91 (108) 99 06/14/17 20:00 96.5 85 17 171/79 (109) 97 06/14/17 16:00 95.4 85 17 133/89 (104) 98 06/14/17 12:00 95.1 86 17 159/87 (111) 96 I/O 06/14/17 06/14/17 06/14/17 06/15/17 06/15/17 06/15/17 07:00 15:00 23:00 07:00 15:00 23:00 Intake Total 1202 ml 500 ml 1262.5 ml 1010 ml Output Total 50 ml 100 ml Balance 1202 ml 500 ml 1212.5 ml 910 ml Intake Oral 240 ml 0 ml 0 ml IV Total 962 ml 500 ml 1262.5 ml 1010 ml Gastric Drainage Total 50 ml 100 ml # Voids 2 3 5 # Bowel Movements 5 2 Imaging Last Impressions Abdomen/Pelvis CT 06/13/17 1940 Signed Impressions: Service Date/Time: Tuesday, June 13, 2017 21:24 - CONCLUSION: 1. Abnormal appearance to the distal colon with 2 focal areas of luminal narrowing and significant distention of the colon proximal. Findings suggest the possibility of synchronous tumors or inflammatory strictures. 2. No dilated loops of small bowel. 3. Left inguinal hernia with herniation of a portion of the urinary bladder. Ronal Rosales MD Chest X-Ray 06/13/17 0000 Signed Impressions: Service Date/Time: Tuesday, June 13, 2017 20:21 - CONCLUSION: Bilateral central lung opacities, alveolar edema versus bilateral infiltrates. Ronal Rosales MD Laboratory Test 06/15/17 07:00 Blood Urea Nitrogen 7 MG/DL Creatinine 0.36 MG/DL Random Glucose 62 MG/DL Calcium Level 8.7 MG/DL Magnesium Level 1.8 MG/DL Sodium Level 138 MEQ/L Potassium Level 4.3 MEQ/L Chloride Level 104 MEQ/L Carbon Dioxide Level 24.6 MEQ/L Anion Gap 9 MEQ/L Estimat Glomerular Filtration Rate 258 ML/MIN Physical Examination HEENT: Normocephalic; atraumatic; no jaundice. NECK: Neck is supple CHEST: CTA CARDIAC: Regular rate and rhythm with no murmur gallop or rubs. ABDOMEN: Soft, distended, nontender; bowel sounds are present in all four quadrants. PEG tube in place. EXTREMITIES: No clubbing, cyanosis, or edema. Quadriplegia. SKIN: Normal; no rash; no jaundice. ONCOLOGY NURSE NAVIGATOR: Awake. Nonverbal (Jacki Ferguson) Assessment and Plan Plan ASSESSMENT: - Bowel obstruction. Patient had no BM in alf for 2-3 days. Has had 7 reported bowel movements over past couple days in hospital. CT Abdomen/Pelvis-- abnormal appearance to the distal colon with 2 focal areas of luminal narrowing and significant distention of the colon, findings suggest possibility of synchronous tumors or inflammatory strictures, no dilated loops of small bowel, left inguinal hernia with herniation of a portion of the urinary bladder - Seizure disorder, per attending. PLAN: - NPO - Colonoscopy Friday - Obtain consents - Bowel prep today - Hold TF - Monitor labs - Supportive care - Further recommendations to follow based on results of above. Patient seen and examined by Dr. High and myself and this note is written on his behalf. (Jacki Ferguson) Physician Comments Seen and examined with MACHINE DYER, abdomen somewhat distended. CT reviewed. Colonoscopy planned for friday. Prep through G tube if consents obtained from family. Unable to contact family at present. (Quintin High MD) Jacki Ferguson Jun 15, 2017 11:02 Quintin High MD Jun 15, 2017 12:17
[2017-06-15 12:00] VITALS: BP 137/82; PULSE 92; RESP 16; TEMP 97.9; O2SAT 96
[2017-06-15] MEDS ORDERED: PHARMACY ORDERED LAB ONE (12:45)
[2017-06-15] MEDS ORDERED: RESP: ALBUTEROL 2.5 MG/IPRATROPIUM 0.5 MG NEB (PRN) NEB (14:15)
--- NOTE | 2017-06-15 14:24 | HHI.PR ---
Subjective Remarks Pt seen around 12:30 Non verbal, smiling. Objective Vitals Vital Signs Date Time Temp Pulse Resp B/P (MAP) Pulse Ox O2 Delivery O2 Flow Rate FiO2 06/15/17 12:00 97.9 92 16 137/82 (100) 96 06/15/17 08:00 96.8 90 15 184/96 (125) 97 06/15/17 00:00 97.3 91 17 141/91 (108) 99 06/14/17 20:00 96.5 85 17 171/79 (109) 97 06/14/17 16:00 95.4 85 17 133/89 (104) 98 I/O 06/14/17 06/14/17 06/14/17 06/15/17 06/15/17 06/15/17 07:00 15:00 23:00 07:00 15:00 23:00 Intake Total 1202 ml 500 ml 1262.5 ml 1010 ml Output Total 50 ml 100 ml Balance 1202 ml 500 ml 1212.5 ml 910 ml Intake Oral 240 ml 0 ml 0 ml IV Total 962 ml 500 ml 1262.5 ml 1010 ml Gastric Drainage Total 50 ml 100 ml # Voids 2 3 5 # Bowel Movements 5 2 Result Diagram: 06/14/17 0520 06/15/17 0700 Imaging Last Impressions Abdomen/Pelvis CT 06/13/17 1940 Signed Impressions: Service Date/Time: Tuesday, June 13, 2017 21:24 - CONCLUSION: 1. Abnormal appearance to the distal colon with 2 focal areas of luminal narrowing and significant distention of the colon proximal. Findings suggest the possibility of synchronous tumors or inflammatory strictures. 2. No dilated loops of small bowel. 3. Left inguinal hernia with herniation of a portion of the urinary bladder. Ronal Rosales MD Chest X-Ray 06/13/17 0000 Signed Impressions: Service Date/Time: Tuesday, June 13, 2017 20:21 - CONCLUSION: Bilateral central lung opacities, alveolar edema versus bilateral infiltrates. Ronal Rosales MD Objective Remarks GENERAL: Middle-aged white male in no acute distress. Quadriplegia, non verbal. HEENT: EOMI. CARDIOVASCULAR: Regular rate and rhythm. No obvious murmurs to auscultation. RESPIRATORY: No wheezing. coarse GASTROINTESTINAL: Abdomen soft, non-tender, + less distended. hypoactive bowel sounds, abdominal binder in place. PEG tube in place. MUSCULOSKELETAL: Extremities without edema. No obvious deformities. NEUROLOGICAL: Awake. non verbal A/P Problem List: (1) Large bowel obstruction ICD Code: K56.609 - Unspecified intestinal obstruction, unspecified as to partial versus complete obstruction Status: Acute (2) PNA (pneumonia) ICD Code: J18.9 - Pneumonia, unspecified organism (3) Seizure disorder ICD Code: G40.909 - Epilepsy, unspecified, not intractable, without status epilepticus Assessment and Plan 1. Large Bowel Obstruction: Outpatient X-ray w/ ileus vs obstruction, no BM x2 -[address] Abd/Pelvis w/ 2 focal areas of narrowing w/ significant distention in the colon, possible synchronous tumors or inflammatory strictures, no small bowel dilatation, +left inguinal hernia w/ herniation of portion of bladder, images reviewed by me. NPO, meds converted to IV, Hold Tube Feeds, IVF, Gen Sx following and recommended GI consult, and putting Gtube to gravity, C. Diff ordered and pending. GI plans on doing a colonoscopy in AM 2. PNA: CXR w/ bilateral central lung opacities, s/p Vanc/Cefepime in ER. Continue w/ IV Abx, DuoNeb, pulmonary toilet. will get pulm consult as pt is quadriplegic and has secretions. appreciate recs and assistance 3. Seizure Disorder: Chronic. Convert PO medications to IV where possible. Ativan prn. 4. DVT Prophylaxis: SCD/Teds. Discharge Planning GI/GS following. pulm consulted Colonoscopy in AM Leelee Salvador MD Jun 15, 2017 14:23
--- NOTE | 2017-06-15 15:03 | HHI.PR ---
cc: Mendoza Fall MD Subjective Subjective Notes Abdomen significantly less distended today since G-tube placed to gravity yesterday, according to nurse who had pt. yesterday Objective Vitals/I&O Vital Signs Date Time Temp Pulse Resp B/P (MAP) Pulse Ox O2 Delivery O2 Flow Rate FiO2 06/15/17 12:00 97.9 92 16 137/82 (100) 96 Labs Laboratory Tests Test 06/15/17 07:00 06/15/17 13:00 Blood Urea Nitrogen 7 Creatinine 0.36 Random Glucose 62 Calcium Level 8.7 Magnesium Level 1.8 Sodium Level 138 Potassium Level 4.3 Chloride Level 104 Carbon Dioxide Level 24.6 Anion Gap 9 Estimat Glomerular Filtration Rate 258 Vancomycin Level Trough 15.2 Abdomen: Non-tender, Other (distended, soft, nontender) A/P Problem List: (1) Pneumonia ICD Codes: J18.9 - Pneumonia, unspecified organism Status: Acute (2) Large bowel obstruction ICD Codes: K56.609 - Unspecified intestinal obstruction, unspecified as to partial versus complete obstruction Status: Acute (3) Seizure disorder ICD Codes: G40.909 - Epilepsy, unspecified, not intractable, without status epilepticus Assessment and Plan Abdominal distention with question of colonic strictures Plan: GI service to consider colonoscopy to evaluate areas of potential colonic strictures for neoplasm vs. scarring Problem Qualifiers (1) Pneumonia: Qualified Codes: J18.9 - Pneumonia, unspecified organism Mendoza Fall MD Jun 15, 2017 15:03
[2017-06-15 16:00] VITALS: BP 136/78; PULSE 89; RESP 16; TEMP 98.4; O2SAT 97
[2017-06-15] MEDS ORDERED: PEG (High)/E-LYTE SOLN 4000 ML BTL PO ONE (16:00)
--- NOTE | 2017-06-15 18:19 | MB ---
cc: Elkin CASTRO M.D. DATE OF CONSULTATION: 06/15/2017. HISTORY OF PRESENT ILLNESS: Mr. Melissa is a 47-year-old white male who presented from [facility] with a possible bowel obstruction; that was two days ago. History is taken from the chart as the patient is nonverbal. What I do have from the chart was that he has had an altered mental state for many years associated with quadriplegia. He has a PEG in place. He has a history of seizure disorder. How long he has been in the [facility] with these problems is not clearly outlined in the record. They sent him from the home because he was apparently grimacing, seemed to be in pain, particularly when medicines and feeding were placed through his gastrostomy tube. On presentation, he had an abdominal CT, which reveals abnormal distal colon, two focal areas of luminal narrowing of unclear significance, but no dilated loops of small bowel. He had a left inguinal hernia as well. He was seen by surgery and an NG tube was placed. He has been monitored and the abdomen seems to have deflated. GI has seen him and plans on doing a colonoscopy for the abnormalities noted above. He also had a chest x-ray on presentation that was interpreted as revealing bilateral central lung opacities. It is a portable technique that shows some patchy densities around the perihilar areas. No effusions. No dense consolidation. The concern was that he may have had pneumonia and he was started on vancomycin and cefepime as this would have been a pneumonia developed in healthcare setting. We have no other prior admissions to this institution. The patient has been afebrile throughout this admission. No particular notation of cough or congestion. There has been no witnessed vomiting. His white count was 5000 on the day of admission and 6500 yesterday with a normal differential. BUN and creatinine are normal. PHYSICAL EXAMINATION: GENERAL: At the time of this exam he is comfortable, resting in bed. The patient is nonverbal. VITAL SIGNS: He is afebrile. Blood pressure 130/78, his pulse is 89. His respirations are nonlabored at 14 to 18 and his sat on room air is 97%. NECK: There is no palpable adenopathy in the neck or supraclavicular region. CHEST: Chest is actually clear. HEART: No harsh murmur. No audible S3. ABDOMEN: Abdomen is soft. EXTREMITIES: There is no edema in the legs. DISCUSSION: Mr. Melissa presented with abdominal complaints based on the report from his [facility] and at this point may have a colonic abnormality that is being investigated by GI. The admission film is a portable technique somewhat light. I am not certain that there are any infiltrates here other than normal structures so I am going to obtain a followup film again tomorrow. Unless there is obvious infiltrate, he may not actually have pneumonia, particularly without a fever without any elevation in white count. After reviewing that film tomorrow, we can decide whether or not to continue antibiotic therapy. R. MD LEAH Beatty/DARYL /5:51 PM /6:17 PM
[2017-06-15 20:00] VITALS: BP 148/81; PULSE 98; RESP 17; TEMP 95.9; O2SAT 98
[2017-06-15] MEDS: lamoTRIgine 100 MG TAB PO SCH (20:23)
[2017-06-15] MEDS: PHENYTOIN INJ 100 MG/2 ML VIAL IV PUSH SCH (20:23)
[2017-06-16] VITALS: BP 136/76; PULSE 96; RESP 17; TEMP 95.6; O2SAT 97
[2017-06-16] MEDS: SODIUM CHLORIDE 0.9% FLUSH 10 ML FLUSH IV FLUSH SCH ×2 (07:56→21:00)
[2017-06-16] MEDS: DOCUSATE SODIUM 50 MG/SENNA 8.6 MG TAB PO SCH ×2 (07:57→21:00)
[2017-06-16] MEDS: PHENobarbital SOD 130 MG/ML VIAL IM SCH (07:58)
[2017-06-16] MEDS: CEFEPIME INJ 1,000 MG in SODIUM CHLORIDE 0.9% INJ 100 ML IV SCH ×2 (07:59→22:08)
[2017-06-16 08:00] VITALS: BP 134/73; PULSE 98; RESP 17; TEMP 97.3; O2SAT 94
--- NOTE | 2017-06-16 09:58 | RADRPT ---
EXAM DATE/TIME: 06/16/2017 09:24 [facility] COMPARISON: CHEST SINGLE AP, June 13, 2017, 20:21. INDICATIONS : Follow up pneumonia. MEDICAL HISTORY : None. SURGICAL HISTORY : None. ENCOUNTER: Subsequent ACUITY: 3 days PAIN SCORE: 0/10 LOCATION: Bilateral chest FINDINGS: A single view of the chest demonstrates the lungs to be symmetrically aerated without evidence of mas s, infiltrate or effusion. The cardiomediastinal contours are unremarkable. Osseous structures are intact. CONCLUSION: No acute disease. Ronal Coker Jr., MD on June 16, 2017 at 9:56 Board Certified Radiologist. This report was verified electronically.
[2017-06-16] MEDS: SODIUM CHLOR 0.9% 1000 ML INJ 1,000 ML IV SCH ×2 (11:17→21:13)
--- NOTE | 2017-06-16 11:30 | HHI.PR ---
Subjective Remarks non verbal closed eyes going for colonoscopy Objective Vitals Vital Signs Date Time Temp Pulse Resp B/P (MAP) Pulse Ox O2 Delivery O2 Flow Rate FiO2 06/16/17 08:00 97.3 98 17 134/73 (93) 94 06/16/17 00:00 95.6 96 17 136/76 (96) 97 06/15/17 20:00 95.9 98 17 148/81 (103) 98 06/15/17 16:00 98.4 89 16 136/78 (97) 97 06/15/17 12:00 97.9 92 16 137/82 (100) 96 I/O 06/15/17 06/15/17 06/15/17 06/16/17 06/16/17 06/16/17 07:00 15:00 23:00 07:00 15:00 23:00 Intake Total 1010 ml 1100 ml 362.5 ml 962 ml 100 ml Output Total 100 ml 365 ml Balance 910 ml 1100 ml -2.5 ml 962 ml 100 ml Intake Oral 0 ml 0 ml IV Total 1010 ml 1100 ml 362.5 ml 962 ml 100 ml Output Urine Total 350 ml Gastric Drainage Total 100 ml 15 ml # Voids 5 2 # Bowel Movements 2 0 Result Diagram: 06/14/17 0520 06/15/17 0700 Objective Remarks GENERAL: This is a well-nourished, well-developed patient, in no apparent distress. CARDIOVASCULAR: Regular rate and rhythm without murmurs, gallops, or rubs. RESPIRATORY: fair air entry bilaterally. No wheezes, rales, or rhonchi. GASTROINTESTINAL: Abdomen soft, non-tender, nondistended. Normal active bowel sounds MUSCULOSKELETAL: Extremities without clubbing, cyanosis, or edema. NEURO: closed eyes , nonverbal. Moves all ext x4 A/P Problem List: (1) Large bowel obstruction ICD Code: K56.609 - Unspecified intestinal obstruction, unspecified as to partial versus complete obstruction Status: Acute (2) PNA (pneumonia) ICD Code: J18.9 - Pneumonia, unspecified organism (3) Seizure disorder ICD Code: G40.909 - Epilepsy, unspecified, not intractable, without status epilepticus Assessment and Plan 1. Large Bowel Obstruction: Outpatient X-ray w/ ileus vs obstruction, no BM x2 -3 days per [facility] CT Abd/Pelvis w/ 2 focal areas of narrowing w/ significant distention in the colon, possible synchronous tumors or inflammatory strictures, no small bowel dilatation, +left inguinal hernia w/ herniation of portion of bladder, images reviewed by me. NPO, meds converted to IV, Hold Tube Feeds, IVF, Gen Sx and GI following, C. Diff neg . colonoscopy today 2. PNA: CXR w/ bilateral central lung opacities, repeated one negative , s/p Vanc/Cefepime in ER. Continue w/ IV Abx, DuoNeb, pulmonary toilet.appreciate pulm consult doubt he have pna , consider dc abx 3. Seizure Disorder: Chronic. Convert PO medications to IV where possible. Ativan prn. 4. DVT Prophylaxis: SCD/Teds. Priscila Chun MD Jun 16, 2017 11:30
[2017-06-16 12:00] VITALS: BP 126/60; PULSE 99; RESP 16; TEMP 97.4; O2SAT 93
[2017-06-16] MEDS: VANCOMYCIN INJ 1,250 MG in SODIUM CHLOR 0.9% 250 ML INJ 250 ML IV SCH (12:17)
--- NOTE | 2017-06-16 15:29 | HHI.GIFU ---
Subjective Remarks Pt resting in bed, napping. Did not rouse to exam. Per RN no BM. Consents were obtained for procedures. (Hannah Pimentel) Objective Vitals I&O Vital Signs Date Time Temp Pulse Resp B/P (MAP) Pulse Ox O2 Delivery O2 Flow Rate FiO2 06/16/17 12:00 97.4 99 16 126/60 (82) 93 06/16/17 08:00 97.3 98 17 134/73 (93) 94 06/16/17 00:00 95.6 96 17 136/76 (96) 97 06/15/17 20:00 95.9 98 17 148/81 (103) 98 06/15/17 16:00 98.4 89 16 136/78 (97) 97 I/O 06/15/17 06/15/17 06/15/17 06/16/17 06/16/17 06/16/17 07:00 15:00 23:00 07:00 15:00 23:00 Intake Total 1010 ml 1100 ml 362.5 ml 962 ml 100 ml Output Total 100 ml 365 ml 900 ml Balance 910 ml 1100 ml -2.5 ml 962 ml -800 ml Intake Oral 0 ml 0 ml IV Total 1010 ml 1100 ml 362.5 ml 962 ml 100 ml Output Urine Total 350 ml 900 ml Gastric Drainage Total 100 ml 15 ml # Voids 5 2 # Bowel Movements 2 0 Physical Exam HEENT: normocephalic; atraumatic; no jaundice. CHEST: coarse. ABDOMEN: Soft, distended, nontender; no hepatosplenomegaly; bowel sounds are present in all four quadrants. PEG site clean and dry EXTREMITIES: No clubbing, cyanosis, or edema. SKIN: Normal; no rash; no jaundice. PARTY PLANNER: asleep (Hannah Pimentel) Assessment and Plan Plan ASSESSMENT: - Bowel obstruction. Patient had no BM in shelter for 2-3 days. Has had 7 reported bowel movements over past couple days in hospital. CT Abdomen/Pelvis-- abnormal appearance to the distal colon with 2 focal areas of luminal narrowing and significant distention of the colon, findings suggest possibility of synchronous tumors or inflammatory strictures, no dilated loops of small bowel, left inguinal hernia with herniation of a portion of the urinary bladder. Consent was obtained for colonoscopy, will do tomorrow . d/w RN - Seizure disorder, per attending. PLAN: - NPO - Colonoscopy Fridayamy @ 1600 - TF - Monitor labs - Supportive care - Further recommendations to follow based on results of above. Patient seen and examined by Dr. Vega and myself and this note is written on her behalf. (Hannah Pimentel) Physician Comments seen, examined agree with above (Nury Vega MD) Hannah Pimentel Jun 16, 2017 15:29 Nury Vega MD Jun 16, 2017 16:21
[2017-06-16 16:00] VITALS: BP 125/65; PULSE 97; RESP 16; TEMP 97.7; O2SAT 94
--- NOTE | 2017-06-16 16:59 | HHI.PR ---
cc: Jeff Marrero MD Subjective Subjective Notes Resting in bed Spoke with RN Constanza ---cannot reach POA for consent for colonoscopy Objective Vitals/I&O Vital Signs Date Time Temp Pulse Resp B/P (MAP) Pulse Ox O2 Delivery O2 Flow Rate FiO2 06/16/17 12:00 97.4 99 16 126/60 (82) 93 Cardiovascular: Regular Lungs: Clear Abdomen: Other (minimally distended; PEG in place ) Extremities: No edema A/P Problem List: (1) Pneumonia ICD Codes: J18.9 - Pneumonia, unspecified organism Status: Acute (2) Large bowel obstruction ICD Codes: K56.609 - Unspecified intestinal obstruction, unspecified as to partial versus complete obstruction Status: Acute (3) Seizure disorder ICD Codes: G40.909 - Epilepsy, unspecified, not intractable, without status epilepticus Assessment and Plan 47 year old male who resided in long-term; s/p SCI; with SBO -GI unable to do EGD/Colonoscopy---POA has not been available to sign consents -Continue G tube to gravity drainage -NPO -Obtain stool sample for C-diff testing Problem Qualifiers (1) Pneumonia: Qualified Codes: J18.9 - Pneumonia, unspecified organism Jenny Nguyen Jun 16, 2017 16:59
[2017-06-16] MEDS ORDERED: PEG (High)/E-LYTE SOLN 4000 ML BTL PO ONE (18:00)
[2017-06-16 20:00] VITALS: BP 135/88; PULSE 105; RESP 21; TEMP 97.6; O2SAT 95
[2017-06-16] MEDS: lamoTRIgine 100 MG TAB PO SCH (22:08)
[2017-06-16] MEDS: PHENYTOIN INJ 100 MG/2 ML VIAL IV PUSH SCH (22:09)
[2017-06-17] VITALS: BP 137/87; PULSE 97; RESP 19; TEMP 98.2; O2SAT 97
[2017-06-17] MEDS ORDERED: SODIUM CHLORID 0.9% 500 ML IV PRN (00:45)
[2017-06-17] MEDS ORDERED: LACTATED RINGER'S 1000 ML IV PRN (00:45)
[2017-06-17] MEDS: VANCOMYCIN INJ 1,250 MG in SODIUM CHLOR 0.9% 250 ML INJ 250 ML IV SCH (02:18)
[2017-06-17 04:00] VITALS: BP 151/84; PULSE 97; RESP 19; TEMP 97.9; O2SAT 99
[2017-06-17 08:00] VITALS: BP 149/70; PULSE 73; RESP 17; TEMP 96.6; O2SAT 93
[2017-06-17] MEDS: DOCUSATE SODIUM 50 MG/SENNA 8.6 MG TAB PO SCH ×2 (09:00→22:14)
[2017-06-17] MEDS: SODIUM CHLORIDE 0.9% FLUSH 10 ML FLUSH IV FLUSH SCH ×2 (09:00→21:00)
[2017-06-17] MEDS: CEFEPIME INJ 1,000 MG in SODIUM CHLORIDE 0.9% INJ 100 ML IV SCH (09:08)
[2017-06-17] MEDS: SODIUM CHLOR 0.9% 1000 ML INJ 1,000 ML IV SCH ×3 (09:08→22:27)
[2017-06-17] MEDS: PHENobarbital SOD 130 MG/ML VIAL IM SCH (09:11)
--- NOTE | 2017-06-17 09:59 | HHI.PR ---
cc: Jeff Marrero MD Subjective Subjective Notes Resting in bed; non verbal Objective Vitals/I&O Vital Signs Date Time Temp Pulse Resp B/P (MAP) Pulse Ox O2 Delivery O2 Flow Rate FiO2 06/17/17 08:00 96.6 73 17 149/70 (96) 93 Cardiovascular: Regular Lungs: Clear Abdomen: Other (mildly distended; G tube in gravity ) Extremities: No edema A/P Problem List: (1) Pneumonia ICD Codes: J18.9 - Pneumonia, unspecified organism Status: Acute (2) Large bowel obstruction ICD Codes: K56.609 - Unspecified intestinal obstruction, unspecified as to partial versus complete obstruction Status: Acute (3) Seizure disorder ICD Codes: G40.909 - Epilepsy, unspecified, not intractable, without status epilepticus Assessment and Plan 47 year old male who resided in correction; s/p SCI; with SBO -Colonoscopy today; consents obtained -Continue G tube to gravity drainage -NPO -Obtain stool sample for C-diff testing Problem Qualifiers (1) Pneumonia: Qualified Codes: J18.9 - Pneumonia, unspecified organism Jenny Nguyen Jun 17, 2017 09:59
[2017-06-17 10:16] LABS: AUTOMATED NEUTROPHIL # 3.5 TH/MM3 (1.8-7.7); BASOPHIL % 0.4 % (0.0-2.0); EOSINOPHIL # 0.1 TH/MM3 (0-0.4); EOSINOPHIL % 2.2 % (0.0-4.0); HEMATOCRIT 44.5 % (39.0-51.0); HEMO FLAGS DIFF FINAL; LYMPH % 20.1 % (9.0-44.0); LYMPHOCYTE # 1.2 TH/MM3 (1.0-4.8); MEAN CORPUSCULAR HEMOGLOBIN 32.6 PG (27.0-34.0); MONO % 17.1 % (0.0-8.0); NEUT % 60.2 % (16.0-70.0); PLATELET COUNT 264 TH/MM3 (150-450); RED BLOOD COUNT 4.64 MIL/MM3 (4.50-5.90); RED CELL DISTRIBUTION WIDTH 12.7 % (11.6-17.2); WHITE BLOOD COUNT 5.8 TH/MM3 (4.0-11.0)
[2017-06-17 10:33] LABS: BICARBONATE 24.1 MEQ/L (21.0-32.0); POTASSIUM 3.5 MEQ/L (3.5-5.1)
[2017-06-17 12:00] VITALS: BP 147/78; PULSE 95; RESP 17; TEMP 95.8; O2SAT 96
[2017-06-17] MEDS ORDERED: DEXTROSE 50% IN WATER 50 ML VIAL(D50) ONE (15:02)
[2017-06-17] MEDS ORDERED: SUGAMMADEX SODIUM 200 MG/2 ML VIAL IV PUSH ONE ×2 (15:05)
--- NOTE | 2017-06-17 15:44 | GIPROC ---
[facility] [address] [facility]. [facility] [place], [address] COLONOSCOPY PROCEDURE REPORT EXAM DATE: 06/17/2017 PATIENT NAME: Guy Melissa MR #: [id number] BIRTHDATE: 1970 ENDOSCOPIST: Nury Vega MD ORDER #: [id number] YEAST SUPERVISOR: Fitz Mcfarland and Aida Doss STATUS: inpatient INDICATIONS: The patient is a 47 yr old male here for a colonoscopy due to abnormal ct PROCEDURE PERFORMED: Colonoscopy with biopsy MEDICATIONS: None and Per Anesthesia. PREP QUALITY: suboptimal PREP TYPE:Other: ESTIMATED BLOOD LOSS: None CONSENT: The patient understands the risks and benefits of the procedure and understands that these risks include, but are not limited to: sedation, allergic reaction, infection, perforation and/or bleeding. Alternative means of evaluation and treatment include, among others: physical exam, x-rays, and/or surgical intervention. The patient elects to proceed with this endoscopic procedure. medical equipment was checked for proper function. Hand hygiene and appropriate measures for infection prevention was taken. After the risks, benefits and alternatives of the procedure were thoroughly explained, Informed consent was verified, confirmed and timeout was successfully executed by the treatment team. A digital exam revealed external hemorrhoids The Pentax [id number] endoscope was introduced through the anus and advanced to the cecum, which was identified by both the appendix and ileocecal valve. The instrument was then slowly withdrawn as the colon was fully examined. COLON FINDINGS: Liquid stool throughout colon-agressive washing done mild erythema descending and rectum -biopsy. Retroflexed views revealed internal hemorrhoids and Retroflexed views revealed medium internal hemorrhoids The scope was then completely withdrawn from the patient and the procedure terminated. PROCEDURE WITHDRAWAL TIME:6minutes ADVERSE EVENTS: There were no complications. IMPRESSIONS: 1. Liquid stool throughout colon-agressive washing done mild erythema descending and rectum -biopsy 2. Retroflexed views revealed internal hemorrhoids 3. Retroflexed views revealed medium internal hemorrhoids 4. Revealed external hemorrhoids RECOMMENDATIONS: 1. Await biopsy results. Biopsy results will not be ready for 7-10 days. If you don't hear from us in two weeks, call our office for results. 2. Probiotics from any [facility] or health food store 3. Resume tube feeding RECALL: Return 1 year Colonoscopy Nury Vega MD eSigned: Nury Vega MD 06/17/2017 3:44 PM cc:
[2017-06-17] MEDS ORDERED: DO NOT ADM ANY ANTICOAGULANT DRUGS PRN (15:45)
--- NOTE | 2017-06-17 17:13 | HHI.PR ---
Subjective Remarks Follow-up visit for small bowel obstruction after being sent from [place] [facility] with concerns for no BM in 2-3 days. Patient was seen and examined in room shortly after returning from colonoscopy. He is lying in bed with eyes closed, he is nonverbal, history of quadriplegia. Moves head side to side spontaneously , abdomen soft with mild distension, no apparent discomfort noted with palpation. No family at bedside at this moment. Objective Vitals Vital Signs Date Time Temp Pulse Resp B/P (MAP) Pulse Ox O2 Delivery O2 Flow Rate FiO2 06/17/17 12:00 95.8 95 17 147/78 (101) 96 06/17/17 08:00 96.6 73 17 149/70 (96) 93 06/17/17 04:00 97.9 97 19 151/84 (106) 99 06/17/17 00:00 98.2 97 19 137/87 (104) 97 06/16/17 20:00 97.6 105 21 135/88 (104) 95 I/O 06/16/17 06/16/17 06/16/17 06/17/17 06/17/17 06/17/17 07:00 15:00 23:00 07:00 15:00 23:00 Intake Total 962 ml 100 ml 1208.5 ml 250 ml 526 ml 300 ml Output Total 900 ml 1125 ml Balance 962 ml -800 ml 83.5 ml 250 ml 526 ml 300 ml Intake Oral 0 ml IV Total 962 ml 100 ml 1208.5 ml 250 ml 526 ml Other 300 ml Output Urine Total 900 ml 1025 ml Gastric Drainage Total 100 ml # Bowel Movements 0 Result Diagram: 06/17/17 0847 06/17/17 0847 Imaging Last Impressions Chest X-Ray 06/16/17 0900 Signed Impressions: Service Date/Time: Friday, June 16, 2017 09:24 - CONCLUSION: No acute disease. Ronal Coker Jr., MD Abdomen/Pelvis CT 06/13/171939 Signed Impressions: Service Date/Time: Tuesday, June 13, 2017 21:24 - CONCLUSION: 1. Abnormal appearance to the distal colon with 2 focal areas of luminal narrowing and significant distention of the colon proximal. Findings suggest the possibility of synchronous tumors or inflammatory strictures. 2. No dilated loops of small bowel. 3. Left inguinal hernia with herniation of a portion of the urinary bladder. Ronal Rosales MD Objective Remarks GENERAL: Middle-aged white male in no acute distress. Quadriplegia, non verbal. CARDIOVASCULAR: Regular rate and rhythm. No obvious murmurs to auscultation. RESPIRATORY: No wheezing. coarse in upper lobes, diminished at bases. GASTROINTESTINAL: Abdomen soft, non-tender, mildly distended. hypoactive bowel sounds, abdominal binder in place. PEG tube in place to gravity drainage. MUSCULOSKELETAL: Extremities without edema. Contractures of right hand noted. NEUROLOGICAL: non verbal moves head spontaneously A/P Problem List: (1) Large bowel obstruction ICD Code: K56.609 - Unspecified intestinal obstruction, unspecified as to partial versus complete obstruction Status: Acute (2) PNA (pneumonia) ICD Code: J18.9 - Pneumonia, unspecified organism (3) Seizure disorder ICD Code: G40.909 - Epilepsy, unspecified, not intractable, without status epilepticus Assessment and Plan 47-year old quadriplegic patient who lives in [place] [facility] who is brought to the hospital with concerns for no bowel movements in 2-3 days. Bowel obstruction - CT of abdomen pelvis reviewed revealed abnormal appearance of distal colon with 2 focal areas of luminal narrowing and significant distention of the colon proximal findings suggest synchronous tumors or inflammatory strictures. No dilated loops of small bowel, left inguinal hernia with herniation of a portion of the urinary bladder. - General surgery following, appreciate recommendations. - GI consulted and preformed colonoscopy with biopsy which revealed liquid stools which were aggressively washed, mild erythema descending and rectum, internal and external hemorrhoids. Biopsies taken will be available in 7-10 days. Colonoscopy in 1 year. - Probiotics recommended, TF restarted. ?Pneumonia - Initial chest x-ray on admission showed bilateral central lung opacities, alveolar edema VS bilateral infiltrates. Placed on IV antibiotics. - Pulmonary consulted, repeat chest x-ray 06/16 negative, D/C antibiotics as x-ray is negative, no elevated WBC's, no fevers. Seizure disorder, stable - On Dilantin, Lamictal, and Phenobarb. VTE - SCD's and TEDs. Discharge Planning Plans to DC back to [place] [facility] where he resides once cleared from GI standpoint Peg Steven Jun 17, 2017 17:13
[2017-06-17 20:00] VITALS: BP 131/75; PULSE 96; RESP 22; TEMP 97.1; O2SAT 93
[2017-06-17] MEDS: PHENYTOIN INJ 100 MG/2 ML VIAL IV PUSH SCH (22:13)
[2017-06-17] MEDS: lamoTRIgine 100 MG TAB PO SCH (22:13)
[2017-06-18 02:03] VITALS: BP 126/64; PULSE 96; RESP 20; TEMP 97.4; O2SAT 92
[2017-06-18 08:00] VITALS: BP 131/71; PULSE 92; RESP 18; TEMP 98.3; O2SAT 97
[2017-06-18] MEDS: DOCUSATE SODIUM 50 MG/SENNA 8.6 MG TAB PO SCH ×2 (08:24→20:00)
[2017-06-18] MEDS: SODIUM CHLORIDE 0.9% FLUSH 10 ML FLUSH IV FLUSH SCH ×2 (08:24→19:59)
[2017-06-18] MEDS: PHENobarbital SOD 130 MG/ML VIAL IM SCH (08:24)
--- NOTE | 2017-06-18 09:54 | HHI.PR ---
Subjective Remarks Follow-up for small bowel obstruction, questionable pneumonia. Patient seed and examined in room, he is non-verbal, quadriplegic, no family at bedside. Abdominal distention better TF running. No apparent discomfort noted on with abdominal palpation. Condom cath in place with clear urine. Objective Vitals Vital Signs Date Time Temp Pulse Resp B/P (MAP) Pulse Ox O2 Delivery O2 Flow Rate FiO2 06/18/17 08:00 98.3 92 18 131/71 (91) 97 06/18/17 02:03 97.4 96 20 126/64 (84) 92 06/17/17 20:00 97.1 96 22 131/75 (93) 93 06/17/17 16:15 88 17 146/61 (89) 98 Nasal Cannula 3 06/17/17 16:00 81 16 139/81 (100) 99 Nasal Cannula 3 06/17/17 15:48 98.2 79 22 143/71 (95) 99 Simple Mask 10 06/17/17 12:00 95.8 95 17 147/78 (101) 96 I/O 06/17/17 06/17/17 06/17/17 06/18/17 06/18/17 06/18/17 07:00 15:00 23:00 07:00 15:00 23:00 Intake Total 250 ml 526 ml 850 ml Output Total 1650 ml Balance 250 ml 526 ml -800 ml Intake Oral 0 ml IV Total 250 ml 526 ml 550 ml Other 300 ml Output Urine Total 1100 ml Gastric Drainage Total 550 ml # Voids 1 # Bowel Movements 1 Result Diagram: 06/17/17 0847 06/17/17 0847 Imaging Last Impressions Chest X-Ray 06/16/17 0900 Signed Impressions: Service Date/Time: Friday, June 16, 2017 09:24 - CONCLUSION: No acute disease. Ronal Coker Jr., MD Abdomen/Pelvis CT 06/13/17 194 Signed Impressions: Service Date/Time: Tuesday, June 13, 2017 21:24 - CONCLUSION: 1. Abnormal appearance to the distal colon with 2 focal areas of luminal narrowing and significant distention of the colon proximal. Findings suggest the possibility of synchronous tumors or inflammatory strictures. 2. No dilated loops of small bowel. 3. Left inguinal hernia with herniation of a portion of the urinary bladder. Ronal Rosales MD Objective Remarks GENERAL: Middle-aged white male in no acute distress. Quadriplegia, non verbal. CARDIOVASCULAR: Regular rate and rhythm. No obvious murmurs to auscultation. RESPIRATORY: No wheezing. coarse in upper lobes, diminished at bases. GASTROINTESTINAL: Abdomen soft, non-tender, mildly distended, better than yesterday. Active bowel sounds, abdominal binder in place. PEG tube in place TF running. MUSCULOSKELETAL: Extremities without edema. Contractures of right hand noted. NEUROLOGICAL: non verbal moves head spontaneously A/P Problem List: (1) Large bowel obstruction ICD Code: K56.609 - Unspecified intestinal obstruction, unspecified as to partial versus complete obstruction Status: Acute (2) PNA (pneumonia) ICD Code: J18.9 - Pneumonia, unspecified organism (3) Seizure disorder ICD Code: G40.909 - Epilepsy, unspecified, not intractable, without status epilepticus Assessment and Plan 47-year old quadriplegic patient who [place] [facility] who is brought to the hospital with concerns for no bowel movements in 2-3 days. Bowel obstruction - CT of abdomen pelvis reviewed revealed abnormal appearance of distal colon with 2 focal areas of luminal narrowing and significant distention of the colon proximal findings suggest synchronous tumors or inflammatory strictures. No dilated loops of small bowel, left inguinal hernia with herniation of a portion of the urinary bladder. - General surgery following, appreciate recommendations. - GI consulted and preformed colonoscopy with biopsy which revealed liquid stools which were aggressively washed, mild erythema descending and rectum, internal and external hemorrhoids. Biopsies taken will be available in 7-10 days. Colonoscopy in 1 year. - Probiotics recommended - TF Jevity 1.5 restarted, advance to goal of 50ml/hr as tolerated. ?Pneumonia - Initial chest x-ray on admission showed bilateral central lung opacities, alveolar edema VS bilateral infiltrates. Placed on IV antibiotics. - Pulmonary consulted, repeat chest x-ray 06/16 negative, D/C antibiotics as x-ray is negative, no elevated WBC's, no fevers. - On room air, O2 saturation fine. Seizure disorder, stable - On Dilantin, Lamictal, and Phenobarb. VTE - SCD's and TEDs. Discharge Planning Plans to [facility] back to [facility] where he resides once cleared from GI standpoint Peg Steven Jun 18, 2017 09:54
[2017-06-18] MEDS: SODIUM CHLOR 0.9% 1000 ML INJ 1,000 ML IV SCH ×2 (10:54→21:02)
--- NOTE | 2017-06-18 10:59 | HHI.PR ---
cc: Jeff Marrero MD Subjective Subjective Notes Resting in bed; non verbal MICHA Bhandari at bedside Objective Vitals/I&O Vital Signs Date Time Temp Pulse Resp B/P (MAP) Pulse Ox O2 Delivery O2 Flow Rate FiO2 06/18/17 08:00 98.3 92 18 131/71 (91) 97 06/17/17 16:15 Nasal Cannula 3 Cardiovascular: Regular Lungs: Clear Abdomen: Other (PEG in place without complications; abdomen soft ) Extremities: No edema A/P Problem List: (1) Pneumonia ICD Codes: J18.9 - Pneumonia, unspecified organism Status: Acute (2) Large bowel obstruction ICD Codes: K56.609 - Unspecified intestinal obstruction, unspecified as to partial versus complete obstruction Status: Acute (3) Seizure disorder ICD Codes: G40.909 - Epilepsy, unspecified, not intractable, without status epilepticus Assessment and Plan 47 year old male who resided in [facility]; s/p SCI; with SBO -s/p Colonoscopy ---- shows stool throughout -Abdomen exam benign -Advance TF as tolerated -Dietary consult for TF goal -Obtain stool sample for C-diff testing -Discussed with MICHA Bhandari Problem Qualifiers (1) Pneumonia: Qualified Codes: J18.9 - Pneumonia, unspecified organism Jenny Nguyen [facility] Jun 18, 2017 10:59
[2017-06-18 12:00] VITALS: BP 134/76; PULSE 89; RESP 18; TEMP 98.3; O2SAT 96
--- NOTE | 2017-06-18 12:01 | HHI.GIFU ---
Subjective Remarks Random unpurposeful groan, eyes closed No facial grimace to tactile abdominal exam Skin warm and dry Afebrile Bowel movement 1 (Diane Adrian) Objective Vitals I&O Vital Signs Date Time Temp Pulse Resp B/P (MAP) Pulse Ox O2 Delivery O2 Flow Rate FiO2 06/18/17 08:00 98.3 92 18 131/71 (91) 97 06/18/17 02:03 97.4 96 20 126/64 (84) 92 06/17/17 20:00 97.1 96 22 131/75 (93) 93 06/17/17 16:15 88 17 146/61 (89) 98 Nasal Cannula 3 06/17/17 16:00 81 16 139/81 (100) 99 Nasal Cannula 3 06/17/17 15:48 98.2 79 22 143/71 (95) 99 Simple Mask 10 06/17/17 12:00 95.8 95 17 147/78 (101) 96 I/O 06/17/17 06/17/17 06/17/17 06/18/17 06/18/17 06/18/17 07:00 15:00 23:00 07:00 15:00 23:00 Intake Total 250 ml 526 ml 850 ml Output Total 1650 ml Balance 250 ml 526 ml -800 ml Intake Oral 0 ml IV Total 250 ml 526 ml 550 ml Other 300 ml Output Urine Total 1100 ml Gastric Drainage Total 550 ml # Voids 1 # Bowel Movements 1 Laboratory Laboratory Tests Test 06/17/17 08:47 White Blood Count 5.8 TH/MM3 Red Blood Count 4.64 MIL/MM3 Hemoglobin 15.1 GM/DL Hematocrit 44.5 % Mean Corpuscular Volume 96.0 FL Mean Corpuscular Hemoglobin 32.6 PG Mean Corpuscular Hemoglobin Concent 34.0 % Red Cell Distribution Width 12.7 % Platelet Count 264 TH/MM3 Mean Platelet Volume 9.5 FL Neutrophils (%) (Auto) 60.2 % Lymphocytes (%) (Auto) 20.1 % Monocytes (%) (Auto) 17.1 % Eosinophils (%) (Auto) 2.2 % Basophils (%) (Auto) 0.4 % Neutrophils # (Auto) 3.5 TH/MM3 Lymphocytes # (Auto) 1.2 TH/MM3 Monocytes # (Auto) 1.0 TH/MM3 Eosinophils # (Auto) 0.1 TH/MM3 Basophils # (Auto) 0.0 TH/MM3 CBC Comment DIFF FINAL Differential Comment Blood Urea Nitrogen 5 MG/DL Creatinine 0.36 MG/DL Random Glucose 50 MG/DL Calcium Level 8.2 MG/DL Sodium Level 138 MEQ/L Potassium Level 3.5 MEQ/L Chloride Level 103 MEQ/L Carbon Dioxide Level 24.1 MEQ/L Anion Gap 11 MEQ/L Estimat Glomerular Filtration Rate 258 ML/MIN Carcinoembryonic Antigen 2.9 NG/ML Imaging Last Impressions Chest X-Ray 06/16/17 0900 Signed Impressions: Service Date/Time: Friday, June 16, 2017 09:24 - CONCLUSION: No acute disease. Ronal Coker Jr., MD Abdomen/Pelvis CT 06/13/171939 Signed Impressions: Service Date/Time: Tuesday, June 13, 2017 21:24 - CONCLUSION: 1. Abnormal appearance to the distal colon with 2 focal areas of luminal narrowing and significant distention of the colon proximal. Findings suggest the possibility of synchronous tumors or inflammatory strictures. 2. No dilated loops of small bowel. 3. Left inguinal hernia with herniation of a portion of the urinary bladder. Ronal Rosales MD Physical Exam HEENT: normocephalic; atraumatic; no jaundice. Cardiovascular: Systolic murmur at the lower left sternal border CHEST: Low volumes no audible wheeze or rhonchi ABDOMEN: Soft, nontender nor grimace to tactile exam; no hepatosplenomegaly; bowel sounds are present in all four quadrants. PEG site clean and dry EXTREMITIES: No clubbing, cyanosis, or edema., Extremity contractures noted SKIN: Normal; no rash; no jaundice. TECHNICAL APPLICATIONS SPECIALIST: Occasional groan, no response to verbal stimuli (Diane Adrian) Assessment and Plan Plan ASSESSMENT: - Bowel obstruction. Patient had no BM in [facility] for 2-3 days. Has had 7 reported bowel movements over past couple days in hospital. CT Abdomen/Pelvis-- abnormal appearance to the distal colon with 2 focal areas of luminal narrowing and significant distention of the colon, findings suggest possibility of synchronous tumors or inflammatory strictures, no dilated loops of small bowel, left inguinal hernia with herniation of a portion of the urinary bladder. Patient continues to be monitored per general surgery team, appreciate input PEG tube performed without complications, bowel sounds remain active in all 4 quadrants and tolerate tube feeds at 20 cc an hour without residuals documented. Colonoscopy performed on 06-17, liquid stool noted throughout the colon; aggressive washings done. hemorrhoids internal and external noted. - Seizure disorder, per attending. PLAN: - TF Jevity 1.5 infusing at 20 cc an hour, nutritional consult per surgical team for goal amount, advance tube feeding as tolerated, increase to 25 cc/per hour - Probiotics started - Monitor labs as warranted - Supportive care - Further recommendations to follow based on results of above. Patient seen and examined by Dr. Vega and myself and this note is written on her behalf. (Diane Adrian) Physician Comments agree with above gi will sign off bowel regime consider daily stool softener miralax call us as needed (Nury Vega MD) Diane Adrian Jun 18, 2017 12:01 Nury Vega MD Jun 18, 2017 18:31
[2017-06-18] MEDS: LACTOBACILLUS ACIDOPHILUS TAB PEG SCH ×2 (13:45→20:00)
[2017-06-18] MEDS: metroNIDAZOLE 500 MG TAB PO SCH ×2 (13:45→21:01)
[2017-06-18 14:20] LABS: C. DIFF EPI 027 PRESUMPTIVE NEGATIVE (NEGATIVE)
[2017-06-18 16:00] VITALS: BP 131/94; PULSE 95; RESP 18; TEMP 97.2; O2SAT 96
[2017-06-18] MEDS: lamoTRIgine 100 MG TAB PO SCH (20:00)
[2017-06-18] MEDS: PHENYTOIN INJ 100 MG/2 ML VIAL IV PUSH SCH (20:00)
[2017-06-18 20:44] VITALS: BP 116/74; PULSE 95; RESP 18; TEMP 97.1; O2SAT 95
[2017-06-19 00:14] VITALS: BP 111/65; PULSE 94; RESP 20; TEMP 97.9; O2SAT 98
[2017-06-19] MEDS: metroNIDAZOLE 500 MG TAB PO SCH (05:08)
[2017-06-19 08:00] VITALS: BP 124/75; PULSE 98; RESP 17; TEMP 97.6; O2SAT 96
[2017-06-19] MEDS: SODIUM CHLORIDE 0.9% FLUSH 10 ML FLUSH IV FLUSH SCH (09:00)
[2017-06-19 09:02] LABS: ANION GAP 8 MEQ/L (5-15); AST (GOT) 27 U/L (15-37); BICARBONATE 27.2 MEQ/L (21.0-32.0); BLOOD UREA NITROGEN 4 MG/DL (7-18); CHLORIDE 107 MEQ/L (98-107); GLOMERULAR FILTRATION RATE 222 ML/MIN (>89); POTASSIUM 3.3 MEQ/L (3.5-5.1); SODIUM (NA) 142 MEQ/L (136-145)
[2017-06-19 09:06] LABS: ALKALINE PHOSPHATASE 118 U/L (45-117); ALT (GPT) 20 U/L (12-78); TOTAL BILIRUBIN ADULT 0.2 MG/DL (0.2-1.0)
[2017-06-19] MEDS: PHENobarbital SOD 130 MG/ML VIAL IM SCH (09:28)
[2017-06-19] MEDS: LACTOBACILLUS ACIDOPHILUS TAB PEG SCH (09:31)
[2017-06-19] MEDS: DOCUSATE SODIUM 50 MG/SENNA 8.6 MG TAB PO SCH (09:31)
[2017-06-19] MEDS: SODIUM CHLOR 0.9% 1000 ML INJ 1,000 ML IV SCH (09:38)
[2017-06-19 11:59] LABS: AUTOMATED NEUTROPHIL # 2.5 TH/MM3 (1.8-7.7); BASOPHIL % 0.5 % (0.0-2.0); EOSINOPHIL # 0.2 TH/MM3 (0-0.4); EOSINOPHIL % 4.4 % (0.0-4.0); HEMATOCRIT 44.1 % (39.0-51.0); HEMO FLAGS DIFF FINAL; LYMPH % 20.9 % (9.0-44.0); LYMPHOCYTE # 0.9 TH/MM3 (1.0-4.8); MEAN CELL VOLUME 96.7 FL (80.0-100.0); MEAN CORPUSCULAR HEMOGLOBIN 32.2 PG (27.0-34.0); MEAN CORPUSCULAR HGB CONC 33.3 % (32.0-36.0); NEUT % 57.2 % (16.0-70.0); PLATELET COUNT 256 TH/MM3 (150-450); RED BLOOD COUNT 4.56 MIL/MM3 (4.50-5.90); RED CELL DISTRIBUTION WIDTH 13.2 % (11.6-17.2); WHITE BLOOD COUNT 4.5 TH/MM3 (4.0-11.0)
--- NOTE | 2017-06-19 11:59 | HHI.PR ---
cc: Jeff Marrero MD Subjective Subjective Notes Resting in bed with eyes closed GEORGINA Rome also at bedside Per RN, no issues overnight and tolerating TF Objective Vitals/I&O Vital Signs Date Time Temp Pulse Resp B/P (MAP) Pulse Ox O2 Delivery O2 Flow Rate FiO2 06/19/17 08:00 97.6 98 17 124/75 (91) 96 06/17/17 16:15 Nasal Cannula 3 Labs Laboratory Tests Test 06/18/17 12:20 06/19/17 07:32 06/19/17 11:26 Stool C. difficile Toxin (PCR) NEGATIVE Stl C. difficile Toxin Epiderm 027 PRESUMPTIVE NEGATIVE Blood Urea Nitrogen 4 Creatinine 0.41 Random Glucose 110 Total Protein 6.5 Albumin 2.7 Calcium Level 8.1 Alkaline Phosphatase 118 Aspartate Amino Transf (AST/SGOT) 27 Alanine Aminotransferase (ALT/SGPT) 20 Total Bilirubin 0.2 Sodium Level 142 Potassium Level 3.3 Chloride Level 107 Carbon Dioxide Level 27.2 Anion Gap 8 Estimat Glomerular Filtration Rate 222 Cardiovascular: Regular Lungs: Clear Abdomen: Non-distended, Non-tender, Other (PEG in place with complications; binder over PEG ) Extremities: No edema A/P Problem List: (1) Pneumonia ICD Codes: J18.9 - Pneumonia, unspecified organism Status: Acute (2) Large bowel obstruction ICD Codes: K56.609 - Unspecified intestinal obstruction, unspecified as to partial versus complete obstruction Status: Acute (3) Seizure disorder ICD Codes: G40.909 - Epilepsy, unspecified, not intractable, without status epilepticus Assessment and Plan 47 year old male who resided in care home; s/p SCI; with SBO -s/p Colonoscopy ---- shows stool throughout -Abdomen exam benign -Tolerating TF at goal -Dietary consult for TF goal -C-diff negative Problem Qualifiers (1) Pneumonia: Qualified Codes: J18.9 - Pneumonia, unspecified organism Jenny Nguyen Jun 19, 2017 11:59
[2017-06-19 12:00] VITALS: BP 132/68; PULSE 91; RESP 18; TEMP 98.3; O2SAT 97
--- NOTE | 2017-06-19 12:13 | HHI.DS ---
Discharge Summary Admission Date Jun 13, 2017 at 23:08 Discharge Date: Jun 19, 2017 Admitting Diagnosis Large bowel obstruction, pneumonia (1) Large bowel obstruction ICD Code: K56.609 - Unspecified intestinal obstruction, unspecified as to partial versus complete obstruction Status: Acute (2) PNA (pneumonia) ICD Code: J18.9 - Pneumonia, unspecified organism (3) Seizure disorder ICD Code: G40.909 - Epilepsy, unspecified, not intractable, without status epilepticus Procedures Colonoscopy 06/17 Brief History - From Admission This is a 47-year-old male with a PMH of Quadriplegia, Nonverbal, s/p PEG and Seizure Disorder who was sent to the ER from [facility] secondary to concern for possible bowel obstruction. Unable to obtain history from patient. Per staff, pt noted to be grimacing when meds pushed through PEG tube , also report no BM for 2-3 days. Outpatient X-ray w/ concern for ileus vs obstruction. On arrival, BP 65/103, HR 77, O2 sat 97% on RA, Afebrile. CBC unremarkable. Chemistry essentially unremarkable. Lactic Acid normal. INR 1.0. UA negative. CXR with bilateral central lung opacities. CT Abd/Pelvis w / abnormal appearance to the distal colon with 2 focal areas of luminal narrowing and significant distention of the colon, findings suggest possibility of synchronous tumors or inflammatory strictures, no dilated loops of small bowel, left inguinal hernia with herniation of a portion of the urinary bladder. S/p Vanc/Cefepime in ER. CBC/BMP: 06/19/17 1126 06/19/17 0732 Significant Findings Laboratory Tests Test 06/17/17 08:47 06/18/17 12:20 06/19/17 07:32 06/19/17 11:26 Monocytes (%) (Auto) 17.1 % (0.0-8.0) 17.0 % (0.0-8.0) Monocytes # (Auto) 1.0 TH/MM3 (0-0.9) Blood Urea Nitrogen 5 MG/DL (7-18) 4 MG/DL (7-18) Creatinine 0.36 MG/DL (0.60-1.30) 0.41 MG/DL (0.60-1.30) Random Glucose 50 MG/DL (74-106) 110 MG/DL (74-106) Calcium Level 8.2 MG/DL (8.5-10.1) 8.1 MG/DL (8.5-10.1) Albumin 2.7 GM/DL (3.4-5.0) Alkaline Phosphatase 118 U/L (45-117) Potassium Level 3.3 MEQ/L (3.5-5.1) Eosinophils (%) (Auto) 4.4 % (0.0-4.0) Lymphocytes # (Auto) 0.9 TH/MM3 (1.0-4.8) Imaging Last Impressions Chest X-Ray 06/16/17 0900 Signed Impressions: Service Date/Time: Friday, June 16, 2017 09:24 - CONCLUSION: No acute disease. Ronal Coker Jr., MD Abdomen/Pelvis CT 06/13/17 1940 Signed Impressions: Service Date/Time: Tuesday, June 13, 2017 21:24 - CONCLUSION: 1. Abnormal appearance to the distal colon with 2 focal areas of luminal narrowing and significant distention of the colon proximal. Findings suggest the possibility of synchronous tumors or inflammatory strictures. 2. No dilated loops of small bowel. 3. Left inguinal hernia with herniation of a portion of the urinary bladder. Ronal Rosales MD PE at Discharge GENERAL: Middle-aged white male in no acute distress. Quadriplegia, non verbal. CARDIOVASCULAR: Regular rate and rhythm. No obvious murmurs to auscultation. RESPIRATORY: No wheezing. coarse in upper lobes, diminished at bases. GASTROINTESTINAL: Abdomen soft, non-tender, mildly distended, better than yesterday. Active bowel sounds, abdominal binder in place. PEG tube in place TF running. MUSCULOSKELETAL: Extremities without edema. Contractures of right hand noted. NEUROLOGICAL: non verbal moves head spontaneously Pt update on day of discharge Patient seen and examined this morning. He is resting comfortably, nonverbal with nonpurposeful movement. TF going to goal rate, condom cath in place with clear yellow urine. No family at bedside, nursing does not report issues overnight, he is tolerating TF at goal rate and moving bowels. Hospital Course 47-year-old quadriplegic patient who was brought to the ED from SNF after not having BM for 2-3 days. Patient with a PMH of seizure disorder, fed via peg-tube , non-verbal. Patient underwent CT of abdomen which showed abnormal appearance of the distal colon with 2 focal areas of luminal narrowing and significant distention of the colon proximal. Findings suggested possible synchronous tumor or inflammatory strictures. GI services was consulted and patient underwent colonoscopy on 06/16 which revealed liquid stools throughout colon for which washing was done, mild erythema descending and rectum biopsies taken. Patient also had internal, and external hemorrhoids. GI recommended repeat colonoscopy in 1 year. General surgery services also evaluated patient with no intervention , cleared for discharge. During patient's hospitalization patient also had chest x-ray done which showed bilateral central lung opacities, alveolar edema versus bilateral infiltrates. Patient was started on antibiotics and pulmonary was consulted for further recommendations with concerns for pneumonia. Patient was seen and evaluated by pulmonary services, repeat chest x-ray done which showed no obvious infiltrates, patient did not have fevers throughout the course of his hospitalization and did not have elevated WBC count, he also did not require oxygen. Antibiotics discontinued and pulmonary signed off. Today he is tolerating TF at goal rate, moving bowels, stool checked for C-diff negative. Hemodynamically stable, potassium level 3.3, replacement given, case specialist has arranged for patient to be discharged back to [facility]. Pt Condition on Discharge: Fair Discharge Disposition: Discharge to SNF Discharge Time: <= 30 minutes Discharge Instructions DIET: Follow Instructions for: Nothing By Mouth (TF Jevity 1.5 45ml/hr) Other Activity Instructions: As tolerated Follow up Referrals: PCP Follow-up - 1 Week New Medications: Nutritional Supplements (Jevity 1.5 Jerry) 0.06 Gram-1.5 Kcal/Ml Liq 45 ML G-TUBE DAILY for Nutritional Supplement, #1 BOTTLE Continued Medications: Xtlonjik-Wijmudxcm-Wfzejzdcyqh Liq (Antacid Anti-Gas Regular Liq) 200-200-20 Mg/ 5 Ml Susp 15 ML PO Q4HR, ML 0 Refills Take between meals or as directed. Shake well. Do not exceed 120 mL/24 hrs. Bismuth Subsalicylate Liq (Pepto-Bismol Liq) 262 Mg/15 Ml Susp 30 ML PO PRN for INDIGESTION OR UPSET STOMACH, #1 BOTTLE 0 Refills Do not exceed 8 doses (240 mL or 16 tbsp) in 24 hours. Calcium Carbonate-Vitamin D Chew (Caltrate 600+D Chew) 600-400 Mg-Unit Chew 1 TAB PEG BID for Nutritional Supplement, EA 0 Refills Cetirizine (Cetirizine) 10 Mg Chew 10 MG PEG HS for Allergies, TAB 0 Refills Chlorhexidine Gluconate (Mouth) Liq (Chlorhexidine Gluconate (Mouth) Liq) 0.12% Soln 15 ML SWISH-SPIT BID, #473 ML 0 Refills Use an oral hygiene brush to apply. Chlorpheniramine-Pseudoephedrine (Sudogest Sinus & Allergy) 4-60 Mg Tab 1 TAB PEG Q4H PRN for NASAL CONGESTION, TAB 0 Refills Ipratropium-Albuterol Neb (Duoneb) 0.5-2.5 Mg/3 Ml Neb 1 NEBULE INH Q6HR NEB for Breathing Treatment, #120 NEBULE 0 Refills Lamotrigine (Lamotrigine) 100 Mg Tab 300 MG PO HS for Control Seizures, #60 TAB 0 Refills Multiple Vitamins W/ Minerals (Thera-M) 1 Tab 1 TAB PEG DAILT for Nutritional Supplement, TAB 0 Refills Phenobarbital (Phenobarbital) 60 Mg Tab 129.6 MG PO DAILY for Control Seizures, #60 TAB 0 Refills Phenytoin Liq (Phenytoin Liq) 125 Mg/5 Ml Bianca 100 MG PEG HS for Control Seizures, #237 ML 0 Refills Polyethylene Glycol 3350 Powder (Polyethylene Glycol 3350 Powder) 17 Gram Pow 17 GM PEG BID for Constipation, #1 BOTTLE 0 Refills Polyvinyl Alcohol Opth Drops (Artificial Tears Opth Drops) 1.4% Soln 1-2 DROP EACH EYE PRN PRN for DRY EYE, BOTTLE 0 Refills Pseudoephedrine (Pseudoephedrine) 60 Mg Tab 60 MG PEG Q6H PRN for NASAL CONGESTION, TAB 0 Refills Vitamins C & E (Cranberry Urinary Comfort) 1 Cap 1 CAP PEG DAILY for Urinary Symptom Managemen, CAP 0 Refills [protein powder] () 1 Discontinued Medications: Fluconazole (Diflucan) 100 Mg Tab 100 MG PEG DAILY for Infection, TAB 0 Refills Loperamide (Loperamide) 2 Mg Cap 2 MG PO DIRECTED PRN for DIARRHEA, CAP 0 Refills One capsule after each loose stool. Not to exceed 8 capsules per day. Peg StevenP Jun 19, 2017 12:12
--- NOTE | 2017-06-19 12:17 | HHI.DCPOC ---
Discharge Care Plan Diagnosis: (1) Large bowel obstruction Goals to Promote Your Health * To prevent worsening of your condition and complications * To maintain your health at the optimal level Directions to Meet Your Goals Take your medications as prescribed Follow your dietary instruction Follow activity as directed Keep your appointments as scheduled Take your immunizations and boosters as scheduled If your symptoms worsen call your PCP, if no PCP go to Urgent Care Center or Emergency Room Smoking is Dangerous to Your Health. Avoid second hand smoke Call the 24-hour hour crisis hotline for domestic abuse at ePg Steven Jun 19, 2017 12:17
[2017-06-19] MEDS ORDERED: ENTERAL NUTRITION FORMULA PEG SCH (12:30)
[2017-06-19] MEDS: POTASSIUM CHLORIDE 20 MEQ PWD PACKET PO ONE (13:15)
[2017-06-19] MEDS ORDERED: POTASSIUM CHLORIDE 20 MEQ PWD PACKET PO ONE (14:00)
[2017-06-19] MEDS ORDERED: JEVILIQ12 G-TUBE (14:07)
[2017-06-19 16:00] VITALS: BP 131/73; PULSE 97; RESP 16; TEMP 97.4; O2SAT 95
== END 2017-06-19 16:31 | disposition short-term general hospital (02) | DRG 388 ==
LOC: NEPE 18:55 → NEDA 23:08 → N07B 06-14 00:57
PROVIDERS: ADMIT Hospitalist; ATTEND Hospitalist
PROC: 0DBP8ZX Excision of Rectum, Via Natural or Artificial Opening Endoscopic, Diagnostic (ICD-10-PCS; 2017-06-17)
PROC: 0DBM8ZX Excision of Descending Colon, Via Natural or Artificial Opening Endoscopic, Diagnostic (ICD-10-PCS; principal; 2017-06-17 15:07)
DX: K56.609 Unspecified intestinal obstruction, unspecified as to partial versus complete obstruction (principal); J18.9 Pneumonia, unspecified organism; G82.50 Quadriplegia, unspecified; G40.909 Epilepsy, unspecified, not intractable, without status epilepticus; Z93.1 Gastrostomy status; K64.8 Other hemorrhoids; K64.4 Residual hemorrhoidal skin tags; K40.90 Unilateral inguinal hernia, without obstruction or gangrene, not specified as recurrent; M24.541 Contracture, right hand
CPT/HCPCS: 71010; 74177; 80048; 80053; 80202; 81001; 82378; 82948; 83605; 83735; 85025; 85610; 85730; 87493; 88305; 96365; J0692; J1165; J2560; J3370; J7030; J7050; P9612; Q9963; Q9967

== ENCOUNTER 2017-08-12 10:47 | Inpatient (IN) | payer MEDICARE, OTHER ==
[~2017-08-12] VITALS: Ht 175.3 cm; Wt 90.0 kg
[2017-08-12] VITALS (7 sets, daily range): BP systolic 98–178; BP diastolic 65–99; PULSE 84–95; RESP 15–18; TEMP 95.6–98.1; O2SAT 94–98
[~2017-08-12 10:47] MED LIST changes: +ANTASUS13 PO; +CALTCHW5 PEG; +CETI10CH PEG; +CRANCAP2 PEG; +IPRASOL INH; +JEVILIQ12 G-TUBE; +LAMO100T PO; +PEPT262S PO; +PHEN-524 PO; +PHEN125S PEG; +POLY17S PEG; +POLY99.0 EACH EYE; +SUDO4TAB PEG; +SUDO60TA2 PEG; +THERTAB17 PEG; +protein powder
--- NOTE | 2017-08-12 11:25 | PD ---
HPI Chief Complaint: Hand Chain Maker Problem Time Seen by Provider: 11:20 Travel History International Travel<30 days: No Contact w/Intl Traveler<30days: No Traveled to known affect area: No History of Present Illness HPI 47-year-old male with history of mental retardation, quadriplegia, [facility] because he apparently has not urinated in 24 hours, in his having increasing abdominal distention. 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 He is not verbal. 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 Reported [protein powder] 1 Pepto-Bismol Liq (Bismuth Subsalicylate) 262 Mg/15 Ml Susp 30 Ml PO PRN Do not exceed 8 doses (240 mL or 16 tbsp) in 24 hours. Pseudoephedrine (Pseudoephedrine HCl) 60 Mg Tab 60 Mg PEG Q6H PRN Antacid Anti-Gas Regular Liq (Kmpqrabp-Lrlebmdwy-Deqxjgucvni Liq) 200-200-20 Mg/ 5 Ml Susp 15 Ml PO Q4HR Take between meals or as directed. Shake well. Do not exceed 120 mL/24 hrs. Cetirizine (Cetirizine HCl) 10 Mg Chew 10 Mg PEG HS Cranberry Urinary Comfort (Vitamins C & E) 1 Cap 1 Cap PEG DAILY Polyethylene Glycol 3350 Powder (Polyethylene Glycol) 17 Gram Pow 17 Gm PEG BID Caltrate 600+D Chew (Calcium Carbonate-Vitamin D Chew) 600-400 Mg-Unit Chew 1 Tab PEG BID Phenytoin Liq (Phenytoin) 125 Mg/5 Ml Bianca 100 Mg PEG HS Lamotrigine 100 Mg Tab 300 Mg PO HS Thera-M (Multiple Vitamins W/ Minerals) 1 Tab 1 Tab PEG DAILT Phenobarbital 60 Mg Tab 129.6 Mg PO DAILY Sudogest Sinus & Allergy (Chlorpheniramine-Pseudoephedrine) 4-60 Mg Tab 1 Tab PEG Q4H PRN Artificial Tears Opth Drops (Polyvinyl Alcohol) 1.4% Soln 1-2 Drop EACH EYE PRN PRN Duoneb (Ipratropium-Albuterol Neb) 0.5-2.5 Mg/3 Ml Neb 1 Nebule INH Q6HR NEB Review of Systems ROS Limitations: Speech Impaired (MR), Poor Historian Physical Exam Narrative GENERAL: Mentally retarded middle-age male patient currently an no acute distress. Awake in alert. Nonverbal. SKIN: Focused skin assessment warm/dry. HEAD: Atraumatic. Normocephalic. EYES: Pupils equal and round. No scleral icterus. No injection or drainage. ENT: No nasal bleeding or discharge. Mucous membranes pink and moist. NECK: Trachea midline. No JVD. CARDIOVASCULAR: Regular rate and rhythm. No murmur appreciated. RESPIRATORY: No accessory muscle use. Clear to auscultation. Breath sounds equal bilaterally. GASTROINTESTINAL: Abdomen non-tender, tensely distended. MUSCULOSKELETAL: No obvious deformities. No clubbing. No cyanosis. No edema. NEUROLOGICAL: Awake and alert. Nonverbal, not able to follow direction. Quadriplegic. PSYCHIATRIC: Mentally retarded; insight and judgment poor. Data Data Last Documented VS Vital Signs Date Time Temp Pulse Resp B/P (MAP) Pulse Ox O2 Delivery O2 Flow Rate FiO2 08/12/17 13:24 84 16 127/77 (94) 98 Room Air 08/12/17 11:28 98.0 Orders Orders Complete Blood Count With Diff (08/12/17 11:20) Basic Metabolic Panel (Bmp) (08/12/17 11:20) Urinalysis - C+S If Indicated (08/12/17 11:20) Urinary Catheter Insert/Apply (08/12/17 11:20) Abdomen, Flat & Upright (08/12/17 11:21) Ct Abd/Pel W Iv Contrast(Rout) (08/12/17 12:34) Place In Observation (08/12/17 ) Vital Signs (Adult) Q4H (08/12/17 13:52) Activity Oob With Assistance (08/12/17 13:52) Trackless Trolley Driver / Telemetry .CONTINUOUS (08/12/17 13:52) Intake + Output VASHTI.QSHIFT (08/12/17 13:52) Diet Npo (08/12/17 Lunch) Sodium Chlor 0.9% 1000 Ml Inj (Ns 1000 M (08/12/17 13:52) Sodium Chloride 0.9% Flush (Ns Flush) (08/12/17 14:00) Sodium Chloride 0.9% Flush (Ns Flush) (08/12/17 21:00) Ondansetron Inj (Zofran Inj) (08/12/17 14:00) Basic Metabolic Panel (Bmp) (08/13/17 06:00) Complete Blood Count With Diff (08/13/17 06:00) Case Management Consult (08/12/17 13:52) Naloxone Inj (Narcan Inj) (08/12/17 14:00) Admit Order (Ed Use Only) (08/12/17 13:53) Labs Laboratory Tests Test 08/12/17 11:45 White Blood Count 5.3 TH/MM3 Red Blood Count 4.89 MIL/MM3 Hemoglobin 16.3 GM/DL Hematocrit 47.2 % Mean Corpuscular Volume 96.6 FL Mean Corpuscular Hemoglobin 33.3 PG Mean Corpuscular Hemoglobin Concent 34.5 % Red Cell Distribution Width 12.8 % Platelet Count 310 TH/MM3 Mean Platelet Volume 9.2 FL Neutrophils (%) (Auto) 56.5 % Lymphocytes (%) (Auto) 23.0 % Monocytes (%) (Auto) 17.2 % Eosinophils (%) (Auto) 2.7 % Basophils (%) (Auto) 0.6 % Neutrophils # (Auto) 3.0 TH/MM3 Lymphocytes # (Auto) 1.2 TH/MM3 Monocytes # (Auto) 0.9 TH/MM3 Eosinophils # (Auto) 0.1 TH/MM3 Basophils # (Auto) 0.0 TH/MM3 CBC Comment DIFF FINAL Differential Comment Urine Color YELLOW Urine Turbidity HAZY Urine pH 8.5 Urine Specific Supply 1.022 Urine Protein 30 mg/dL Urine Glucose (UA) NEG mg/dL Urine Ketones NEG mg/dL Urine Occult Blood NEG Urine Nitrite NEG Urine Bilirubin NEG Urine Urobilinogen LESS THAN 2.0 MG/DL Urine Leukocyte Esterase NEG Urine RBC 1 /hpf Urine WBC 1 /hpf Urine Hyaline Casts 1 /lpf Urine Mucus FEW /lpf Microscopic Urinalysis Comment CULT NOT INDICATED Blood Urea Nitrogen 10 MG/DL Creatinine 0.68 MG/DL Random Glucose 91 MG/DL Calcium Level 9.5 MG/DL Sodium Level 134 MEQ/L Potassium Level 3.6 MEQ/L Chloride Level 97 MEQ/L Carbon Dioxide Level 30.9 MEQ/L Anion Gap 6 MEQ/L Estimat Glomerular Filtration Rate 124 ML/MIN MDM Medical Decision Making Medical Screen Exam Complete: Yes Emergency Medical Condition: Yes Medical Record Reviewed: Yes Interpretation(s) Laboratory Tests Test 08/12/17 11:45 Monocytes (%) (Auto) 17.2 % (0.0-8.0) Urine Turbidity HAZY (CLEAR) Urine Protein 30 mg/dL (NEG-TRACE) Urine Mucus FEW /lpf (OCC) Sodium Level 134 MEQ/L (136-145) Chloride Level 97 MEQ/L (98-107) Last 24 hours Impressions Abdomen X-Ray 08/12/17 1121 Signed Impressions: Service Date/Time: Saturday, August 12, 2017 11:56 - CONCLUSION: There is diffuse gaseous distention of multiple loops of small and large bowel. This is not significantly changed compared to the prior CT scan of the abdomen and pelvis. Probable diffuse adynamic ileus is a consideration. If this requires further evaluation, a CT scan of the abdomen and pelvis could be performed if clinically indicated. Chavez Michele MD Differential Diagnosis Urinary outflow obstruction versus bowel obstruction Narrative Course A Moore catheter was placed draining 750 cc of urine. There was still significant distention after the Moore placement and a x-ray had been done which shows bowel obstruction or ileus. Apparently according to the facility has not been vomiting but at this point, my plan would be to CAT scan this area for further evaluation and admit the patient for ileus. Case was discussed with Dr. Aggarwal for admission. Diagnosis Primary Impression: Ileus Additional Impression: Urinary outflow obstruction Admitting Information Admitting Physician Requests: Admit Phillip Tolliver MD Aug 12, 2017 11:25
[2017-08-12 12:16] LABS: BASOPHIL % 0.6 % (0.0-2.0); EOSINOPHIL # 0.1 TH/MM3 (0-0.4); EOSINOPHIL % 2.7 % (0.0-4.0); HEMATOCRIT 47.2 % (39.0-51.0); HEMOGLOBIN 16.3 GM/DL (13.0-17.0); LYMPHOCYTE # 1.2 TH/MM3 (1.0-4.8); MEAN CELL VOLUME 96.6 FL (80.0-100.0); MEAN CORPUSCULAR HEMOGLOBIN 33.3 PG (27.0-34.0); MEAN CORPUSCULAR HGB CONC 34.5 % (32.0-36.0); MEAN PLATELET VOLUME 9.2 FL (7.0-11.0); MONO % 17.2 % (0.0-8.0); MONOCYTE # 0.9 TH/MM3 (0-0.9); NEUT % 56.5 % (16.0-70.0); PLATELET COUNT 310 TH/MM3 (150-450); RED BLOOD COUNT 4.89 MIL/MM3 (4.50-5.90); RED CELL DISTRIBUTION WIDTH 12.8 % (11.6-17.2); WHITE BLOOD COUNT 5.3 TH/MM3 (4.0-11.0)
[2017-08-12 12:21] LABS: BILIRUBIN, URINE NEG (NEG); BLOOD, URINE NEG (NEG); GLUCOSE,URINE NEG (NEG); HYALINE CAST, URINE 1 /lpf (RARE); KETONE, URINE NEG (NEG); MUCUS URINE FEW /lpf (OCC); NITRITE,URINE NEG (NEG); PH, URINE 8.5 (5.0-8.5); URINE COLOR YELLOW (YELLW/STRAW); URINE LEUKOCYTE ESTERASE NEG (NEG)
[2017-08-12 12:30] LABS: BICARBONATE 30.9 MEQ/L (21.0-32.0); CALCIUM 9.5 MG/DL (8.5-10.1); CREATININE 0.68 MG/DL (0.60-1.30)
--- NOTE | 2017-08-12 12:32 | RADRPT ---
EXAM DATE/TIME: 08/12/2017 11:56 [facility] COMPARISON: CT ABDOMEN & PELVIS W CONTRAST, June 13, 2017, 21:24. INDICATIONS : Unresponsive distended abdomen MEDICAL HISTORY : Unresponsive SURGICAL HISTORY : Unresponsive ENCOUNTER: Initial ACUITY: 3 days PAIN SCORE: Non-responsive. LOCATION: Abdomen FINDINGS: Supine and upright views of the abdomen were performed. There appears to be a G-tube in the stomach. There appears to be diffuse gaseous distention of multiple loops of small and large bowel. Findings s uggest a diffuse adynamic ileus. This pattern is not significantly changed compared to patient's prio r CT scan of the abdomen pelvis from 06/13/2017.. The lung bases are grossly clear. CONCLUSION: There is diffuse gaseous distention of multiple loops of small and large bowel. This is not significa ntly changed compared to the prior CT scan of the abdomen and pelvis. Probable diffuse adynamic ileus is a consideration. If this requires further evaluation, a CT scan of the abdomen and pelvis could b e performed if clinically indicated. Chavez Michele MD on August 12, 2017 at 12:27 Board Certified Radiologist. This report was verified electronically.
[2017-08-12] MEDS ORDERED: NALOXONE HCL 0.4 MG/ML AMP IV PUSH PRN (14:00)
[2017-08-12] MEDS ORDERED: SODIUM CHLORIDE 0.9% FLUSH 10 ML FLUSH IV FLUSH PRN (14:00)
[2017-08-12] MEDS ORDERED: ONDANSETRON HCL 4 MG/2 ML VIAL IVP PRN (14:00)
[2017-08-12] MEDS ORDERED: IOHEXOL 350 MG/ML 10 ML VIAL (for RAD DIAG) IVCONTRAST ONE (14:06)
[2017-08-12] MEDS: SODIUM CHLOR 0.9% 1000 ML INJ 1,000 ML IV SCH (14:31)
--- NOTE | 2017-08-12 14:31 | RADRPT ---
EXAM DATE/TIME: 08/12/2017 13:49 [facility] COMPARISON: CT ABDOMEN & PELVIS W CONTRAST, June 13, 2017, 21:24. INDICATIONS : Abominal distention, possible constipation, urinary retention for 24 hours. IV CONTRAST: 81 cc Omnipaque 350 (iohexol) IV ORAL CONTRAST: No oral contrast ingested. RADIATION DOSE: 7.11 CTDIvol (mGy) MEDICAL HISTORY : Seizures. Hernia. SURGICAL HISTORY : Non-responsive. ENCOUNTER: Initial ACUITY: 2 days PAIN SCALE: 0/10 LOCATION: Bilateral Abdomen TECHNIQUE: Volumetric scanning of the abdomen and pelvis was performed. Using automated exposure control and ad justment of the mA and/or kV according to patient size, radiation dose was kept as low as reasonably achievable to obtain optimal diagnostic quality images. DICOM format image data is available electro nically for review and comparison. FINDINGS: LOWER LUNGS: Mild bibasilar airspace consolidation. LIVER: Stable 1.2 cm hypodense lesion in segment 6. No significant intrapelvic ductal dilatation or evidence for volume loss. Gallbladder is unremarkable by CT. SPLEEN: Normal size without lesion. PANCREAS: Within normal limits. KIDNEYS: Normal in size and shape. Subcentimeter hypodense cystic lesions in the left kidney which are too sm all to characterize. There is no mass, stone or hydronephrosis. ADRENAL GLANDS: Within normal limits. VASCULAR: There is no aortic aneurysm. BOWEL/MESENTERY: Abnormal. There is a gastrostomy catheter in place. Redemonstration of a diffusely distended largely fluid-filled colon extending to the sigmoid. There is a 4 cm length portion of the mid sigmoid colon with diffuse luminal narrowing. A more proximal region of luminal narrowing noted on prior CT exam is not demonstrated on current exam. There are no dilated loops of small bowel. ABDOMINAL WALL: Within normal limits. RETROPERITONEUM: There is no lymphadenopathy. BLADDER: Decompressed secondary to Moore catheter. REPRODUCTIVE: Within normal limits. INGUINAL: Left inguinal hernia with herniation of a portion of the urinary bladder. MUSCULOSKELETAL: Within normal limits for patient age. CONCLUSION: 1. Redemonstration of diffuse colonic distention extending to the distal sigmoid colon with a 4 cm le ngth region of sigmoid luminal narrowing concerning for malignancy or inflammatory stricture. Previou sly described more proximal distal colonic/proximal sigmoid luminal narrowing is not well-demonstrate d on current exam. 2. No apparent associated small bowel obstruction. 3. Stable ancillary findings, as above. Ronald Torres MD on August 12, 2017 at 14:14 Board Certified Radiologist. This report was verified electronically.
--- NOTE | 2017-08-12 14:44 | HHI.HP ---
[facility] Service [facility] ([place], [place])ists Primary Care Physician Yousuf Alonso MD Admission Diagnosis bowel obstruction/ileus Diagnoses: Travel History International Travel<30 Days: No Contact w/Intl Traveler <30 Da: No Traveled to Known Affected Are: No History of Present Illness hx from [facility] aide at the bedside, ER MD, and intermediate transfer notes. 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 Not able to provide any history at all. The 8 at the bedside reported that she cares for him 5 days a week, 8 hours a day usually. She reports that patient has not urinated for the past 24 hours and at [facility], the nurses tried to place a Moore catheter and was unable to get urine from there. Therefore they have sent him to the hospital. In the emergency room, patient was found to have bladder distention and Moore catheter was placed after which 750 cc of urine drained immediately. According to the manager nursing from [employer] [facility], patient also had 1 times episode of vomiting about a week ago. However none since then. She does not know the color of the vomitus because she was not present at the time of it. She stated she was caring for another patient at the time. As far as she knows, patient did not have any fever. She reports the patient was still making bowel movements there although it was mostly streaks. ER nurse also reported the patient did make a bowel movement once while in ER. Patient's baseline status is noncommunicative and caregiver at the bedside stated that she is not sure whether he can make sounds or facial expressions and responds to pain. There for review of system is quite limited. Patient usually gets G-tube feedings. And as far as she knows, there was no report of residuals and the feeding from nursing staff. She denies any bed sores. She reports he usually sits on the wheelchair and also is turned frequently there. Review of Systems ROS Limitations: Altered Mental Status (unable to obtain review of system at all.), Speech Impaired, Poor Historian Past Family Social History Past Medical History Per [facility] paperwork: Seizure disorder mentally challenged spastic quadriplegia microcephaly encephalopathy convulsive disorder osteopenia blindness (retinal detachment) left inguinal hernia- non surgical s/p G tube allergic rhinitis Anemia Vit D def constipation Past Surgical History unknown Allergies: Coded Allergies: Quinolones (Verified Allergy, Unknown, 08/12/17) ciprofloxacin (Verified Allergy, Unknown, 08/12/17) levofloxacin (Verified Allergy, Unknown, 08/12/17) Family History unknown Social History no smoking/ etoh/ drugs lives at [facility] non communicative Physical Exam Vital Signs Vital Signs Date Time Temp Pulse Resp B/P (MAP) Pulse Ox O2 Delivery O2 Flow Rate FiO2 08/12/17 13:24 84 16 127/77 (94) 98 Room Air 08/12/17 11:28 98.0 91 16 168/99 (122) 97 Room Air 08/12/17 11:22 93 18 97 Room Air 08/12/17 10:48 95.6 93 15 133/96 (108) 95 Physical Exam GENERAL: This is a middle-aged man, eyes closed, contracted upper extremities. Noncommunicative. Not in acute distress. SKIN: No rashes, ecchymoses or lesions. Cool and dry. HEAD: Atraumatic. Normocephalic. No temporal or scalp tenderness. EYES: Eyes closed. ENT: Nose without bleeding, purulent drainage or septal hematoma. Airway patent. NECK: Trachea midline. No JVD CARDIOVASCULAR: Regular rate and rhythm without murmurs, gallops, or rubs. RESPIRATORY: Clear to auscultation. Breath sounds equal bilaterally. No wheezes , rales, or rhonchi. Decreased air entry bilaterally due to poor inspiratory effort GASTROINTESTINAL: Abdomen significantly distended. However soft. Unable to assess pain. MUSCULOSKELETAL: Extremities without clubbing, cyanosis, or edema. No calf asymmetry. Bilateral lower extremity muscle atrophy. NEUROLOGICAL: Noncommunicative. Sleeping with eyes closed. Contracted upper and lower extremities. Laboratory Laboratory Tests Test 08/12/17 11:45 White Blood Count 5.3 Red Blood Count 4.89 Hemoglobin 16.3 Hematocrit 47.2 Mean Corpuscular Volume 96.6 Mean Corpuscular Hemoglobin 33.3 Mean Corpuscular Hemoglobin Concent 34.5 Red Cell Distribution Width 12.8 Platelet Count 310 Mean Platelet Volume 9.2 Neutrophils (%) (Auto) 56.5 Lymphocytes (%) (Auto) 23.0 Monocytes (%) (Auto) 17.2 Eosinophils (%) (Auto) 2.7 Basophils (%) (Auto) 0.6 Neutrophils # (Auto) 3.0 Lymphocytes # (Auto) 1.2 Monocytes # (Auto) 0.9 Eosinophils # (Auto) 0.1 Basophils # (Auto) 0.0 CBC Comment DIFF FINAL Differential Comment Urine Color YELLOW Urine Turbidity HAZY Urine pH 8.5 Urine Specific Grover 1.022 Urine Protein 30 Urine Glucose (UA) NEG Urine Ketones NEG Urine Occult Blood NEG Urine Nitrite NEG Urine Bilirubin NEG Urine Urobilinogen LESS THAN 2.0 Urine Leukocyte Esterase NEG Urine RBC 1 Urine WBC 1 Urine Hyaline Casts 1 Urine Mucus FEW Microscopic Urinalysis Comment CULT NOT INDICATED Blood Urea Nitrogen 10 Creatinine 0.68 Random Glucose 91 Calcium Level 9.5 Sodium Level 134 Potassium Level 3.6 Chloride Level 97 Carbon Dioxide Level 30.9 Anion Gap 6 Estimat Glomerular Filtration Rate 124 Result Diagram: 08/12/17 1145 08/12/17 1145 Imaging Last 48 hours Impressions Abdomen/Pelvis CT 08/12/17 1234 Signed Impressions: Service Date/Time: Saturday, August 12, 2017 13:49 - CONCLUSION: 1. Redemonstration of diffuse colonic distention extending to the distal sigmoid colon with a 4 cm length region of sigmoid luminal narrowing concerning for malignancy or inflammatory stricture. Previously described more proximal distal colonic/proximal sigmoid luminal narrowing is not well-demonstrated on current exam. 2. No apparent associated small bowel obstruction. 3. Stable ancillary findings, as above. Ronald Torres MD Abdomen X-Ray 08/12/17 1121 Signed Impressions: Service Date/Time: Saturday, August 12, 2017 11:56 - CONCLUSION: There is diffuse gaseous distention of multiple loops of small and large bowel. This is not significantly changed compared to the prior CT scan of the abdomen and pelvis. Probable diffuse adynamic ileus is a consideration. If this requires further evaluation, a CT scan of the abdomen and pelvis could be performed if clinically indicated. MD Nicolas Hansen VTE Risk Assessment Caprini VTE Risk Assessment: Mod/High Risk (score >= 2) Caprini Risk Assessment Model Point Value = 1 Point Value = 2 Point Value = 3 Point Value = 5 Age 41-60 Minor surgery BMI > 25 kg/m2 Swollen legs Varicose veins or History of unexplained or recurrent spontaneous Oral contraceptives or hormone replacement Sepsis (< 1 month) Serious lung disease, including pneumonia (< 1 month) Abnormal pulmonary function Acute myocardial infarction Congestive heart failure (< 1 month) History of inflammatory bowel disease Medical patient at bed rest Age 61-74 Arthroscopic surgery Major open surgery (> 45 min) Laparoscopic surgery (> 45 min) Malignancy Confined to bed (> 72 hours) Immobilizing plaster cast Central venous access Age >= 75 History of VTE Family history of VTE Factor V Leiden Prothrombin [id number] Lupus anticoagulant Anticardiolipin antibodies Elevated serum homocysteine Heparin-induced thrombocytopenia Other congenital or acquired thrombophilia Stroke (< 1 month) Elective arthroplasty Hip, pelvis, or leg fracture Acute spinal cord injury (< 1 month) Prophylaxis Regimen Total Risk Factor Score Risk Level Prophylaxis Regimen 0-1 Low Early ambulation 2 Moderate Order ONE of the following: *Sequential Compression Device (SCD) *Heparin 5000 units SQ BID 3-4 Higher Order ONE of the following medications: *Heparin 5000 units SQ TID *Enoxaparin/Lovenox 40 mg SQ daily (WT < 150 kg, CrCl > 30 mL/min) *Enoxaparin/Lovenox 30 mg SQ daily (WT < 150 kg, CrCl > 10-29 mL/min) *Enoxaparin/Lovenox 30 mg SQ BID (WT < 150 kg, CrCl > 30 mL/min) AND/OR *Sequential Compression Device (SCD) 5 or more Highest Order ONE of the following medications: *Heparin 5000 units SQ TID (Preferred with Epidurals) *Enoxaparin/Lovenox 40 mg SQ daily (WT < 150 kg, CrCl > 30 mL/min) *Enoxaparin/Lovenox 30 mg SQ daily (WT < 150 kg, CrCl > 10-29 mL/min) *Enoxaparin/Lovenox 30 mg SQ BID (WT < 150 kg, CrCl > 30 mL/min) AND *Sequential Compression Device (SCD) Assessment and Plan Assessment and Plan Impression: ileus with diffuse colonic distention extending to the distal sigmoid with luminal narrowing at sigmoid concerning for malignancy versus inflammatory stricture Urinary retention Comorbid conditions: Seizure disorder mentally challenged spastic quadriplegia microcephaly encephalopathy osteopenia blindness (retinal detachment) left inguinal hernia- non surgical s/p G tube allergic rhinitis Anemia Vit D def constipation Plan: Nothing by mouth. IV hydration. GI consult for possible need of colonoscopy Colonoscopy results from June 18, 2017 reviewed. Colonic mucosa with prominent lymphoid aggregates. Active colitis. Internal and external hemorrhoids Continue Moore. Outpatient urology follow-up for urinary retention. At present, his urinary retention is likely due to massive colonic distention. Resume home medications. DVT prophylaxis with SCD. Code Status Full code per intermediate paperwork Discussed Condition With ER physician, nursing staff Jorge Aggarwal MD Aug 12, 2017 14:44
[2017-08-12] MEDS ORDERED: JEVILIQ12 PEG (14:50)
[2017-08-12] MEDS ORDERED: [UNRECOGNIZED DRUG - CODE] TOPICAL (14:50)
[2017-08-12] MEDS ORDERED: GERISUS PEG (14:50)
[2017-08-12] MEDS ORDERED: LAMO100T PEG (14:50)
[2017-08-12] MEDS ORDERED: PHEN125S PEG (14:50)
[2017-08-12] MEDS ORDERED: ARTIFICIAL TEARS OPTH SOLN 15 ML BTL EACH EYE PRN (16:00)
--- NOTE | 2017-08-12 16:30 | PD.CONS ---
HPI History of Present Illness This is a 47 year old M from [employer] [facility], who presented to the emergency department with his engineering and development director to evaluate anuria. Per engineering and development director, Gena, pt has not urinated in 24 hours. Catheter was placed in ER and currently 300 mL of clear, yellow urine in Moore bag. GI has been consulted to evaluate CT findings. CT abdomen and pelvis with IV contrast (08/12) --> Redemonstration of diffuse colonic distention extending to the distal sigmoid colon with a 4 cm length region of sigmoid luminal narrowing concerning for malignancy or inflammatory stricture. Previously described more proximal distal colonic/proximal sigmoid luminal narrowing is not well-demonstrated on current exam. No apparent associated small bowel obstruction. Pt had recent colonoscopy in May 2017 which revealed liquid stool throughout colon, mild erythema descending and rectum, internal and external hemorrhoids. Pathology ( descending colon) colonic mucosa with a prominent lymphoid aggregate (rectum) mild chronic active colitis. Per engineering and development director pt started having loose bowels 2-3 days ago. She has also noticed some abdominal distension for the past week. Pt was also reported to have one isolated episode of vomiting last week. Otherwise , tolerating tube feeding. (Svetlana Griffith) PFSH Past Medical History Per [facility] paperwork: Seizure disorder mentally challenged spastic quadriplegia microcephaly encephalopathy convulsive disorder osteopenia blindness (retinal detachment) left inguinal hernia- non surgical s/p G tube allergic rhinitis Anemia Vit D def constipation Past Surgical History unknown (Svetlana Griffith) Coded Allergies: Quinolones (Verified Allergy, Unknown, 08/12/17) ciprofloxacin (Verified Allergy, Unknown, 08/12/17) levofloxacin (Verified Allergy, Unknown, 08/12/17) Family History unknown Social History no smoking/ etoh/ drugs lives at [facility] non communicative (Svetlana Griffith) Review of Systems unable to obtain (Svetlana Griffith) GI Exam Vitals I&O Vital Signs Date Time Temp Pulse Resp B/P (MAP) Pulse Ox O2 Delivery O2 Flow Rate FiO2 08/12/17 15:57 91 16 137/84 (101) 96 08/12/17 15:40 91 16 137/81 (99) 96 Room Air 08/12/17 13:24 84 16 127/77 (94) 98 Room Air 08/12/17 11:28 98.0 91 16 168/99 (122) 97 Room Air 08/12/17 11:22 93 18 97 Room Air 08/12/17 10:48 95.6 93 15 133/96 (108) 95 I/O 08/11/17 08/11/17 08/11/17 08/12/17 08/12/17 08/12/17 07:00 15:00 23:00 07:00 15:00 23:00 Output Total 750 ml Balance -750 ml Output Urine Total 750 ml Imaging Last Impressions Abdomen/Pelvis CT 08/12/17 1234 Signed Impressions: Service Date/Time: Saturday, August 12, 2017 13:49 - CONCLUSION: 1. Redemonstration of diffuse colonic distention extending to the distal sigmoid colon with a 4 cm length region of sigmoid luminal narrowing concerning for malignancy or inflammatory stricture. Previously described more proximal distal colonic/proximal sigmoid luminal narrowing is not well-demonstrated on current exam. 2. No apparent associated small bowel obstruction. 3. Stable ancillary findings, as above. Ronald Torres MD Abdomen X-Ray 08/12/17 1121 Signed Impressions: Service Date/Time: Saturday, August 12, 2017 11:56 - CONCLUSION: There is diffuse gaseous distention of multiple loops of small and large bowel. This is not significantly changed compared to the prior CT scan of the abdomen and pelvis. Probable diffuse adynamic ileus is a consideration. If this requires further evaluation, a CT scan of the abdomen and pelvis could be performed if clinically indicated. Chavez Michele MD Laboratory Test 08/12/17 11:45 White Blood Count 5.3 TH/MM3 Red Blood Count 4.89 MIL/MM3 Hemoglobin 16.3 GM/DL Hematocrit 47.2 % Mean Corpuscular Volume 96.6 FL Mean Corpuscular Hemoglobin 33.3 PG Mean Corpuscular Hemoglobin Concent 34.5 % Red Cell Distribution Width 12.8 % Platelet Count 310 TH/MM3 Mean Platelet Volume 9.2 FL Neutrophils (%) (Auto) 56.5 % Lymphocytes (%) (Auto) 23.0 % Monocytes (%) (Auto) 17.2 % Eosinophils (%) (Auto) 2.7 % Basophils (%) (Auto) 0.6 % Neutrophils # (Auto) 3.0 TH/MM3 Lymphocytes # (Auto) 1.2 TH/MM3 Monocytes # (Auto) 0.9 TH/MM3 Eosinophils # (Auto) 0.1 TH/MM3 Basophils # (Auto) 0.0 TH/MM3 CBC Comment DIFF FINAL Differential Comment Urine Color YELLOW Urine Turbidity HAZY Urine pH 8.5 Urine Specific [place] 1.022 Urine Protein 30 mg/dL Urine Glucose (UA) NEG mg/dL Urine Ketones NEG mg/dL Urine Occult Blood NEG Urine Nitrite NEG Urine Bilirubin NEG Urine Urobilinogen LESS THAN 2.0 MG/DL Urine Leukocyte Esterase NEG Urine RBC 1 /hpf Urine WBC 1 /hpf Urine Hyaline Casts 1 /lpf Urine Mucus FEW /lpf Microscopic Urinalysis Comment CULT NOT INDICATED Blood Urea Nitrogen 10 MG/DL Creatinine 0.68 MG/DL Random Glucose 91 MG/DL Calcium Level 9.5 MG/DL Sodium Level 134 MEQ/L Potassium Level 3.6 MEQ/L Chloride Level 97 MEQ/L Carbon Dioxide Level 30.9 MEQ/L Anion Gap 6 MEQ/L Estimat Glomerular Filtration Rate 124 ML/MIN Physical Examination HEENT:Normocephalic; atraumatic CHEST: Even/unlabored ABDOMEN: Distended, tympanic on percussion, soft EXTREMITIES: No clubbing, cyanosis, or edema. SKIN: Normal; no rash; no jaundice. GOVERNMENT MINISTER: No focal deficits; alert and oriented times three. (Svetlana Griffith OCCUPATIONAL HEALTH COORDINATOR) Assessment and Plan Plan Assessment: - Colonic distention with sigmoid narrowing seen on CT- CT abdomen and pelvis with IV contrast (08/12) --> Redemonstration of diffuse colonic distention extending to the distal sigmoid colon with a 4 cm length region of sigmoid luminal narrowing concerning for malignancy or inflammatory stricture. Previously described more proximal distal colonic/proximal sigmoid luminal narrowing is not well- demonstrated on current exam. No apparent associated small bowel obstruction. Pt had recent colonoscopy in May 2017 which revealed liquid stool throughout colon, mild erythema descending and rectum, internal and external hemorrhoids. Pathology (descending colon) colonic mucosa with a prominent lymphoid aggregate (rectum) mild chronic active colitis. Currently symptoms obtained from engineering and development director: loose bowel x 2-3 days, abdominal distension for the past month, one isolated episode of vomiting last week. Otherwise, tolerating tube feeding. Plan: Gastrografin enema Depending on results may pursue sigmoidoscopy Hold TF Monitor labs Supportive care Further recommendations to follow based on results of above Pt has been seen and examined by myself and Dr. High and this note is written on his behalf (Svetlana Griffith) Physician Comments Seen and examined with KEITH, previous scopes and CT's reviewed. barium enema ordered. May need repeat colonoscopy. Discussed with care worker at the bedside. Thank you (Quintin High MD) Svetlana Griffith Aug 12, 2017 16:30 Quintin High MD Aug 12, 2017 17:40
[2017-08-12] MEDS: SODIUM CHLORIDE 0.9% FLUSH 10 ML FLUSH IV FLUSH SCH (21:00)
[2017-08-12] MEDS: RESP: ALBUTEROL 2.5 MG/IPRATROPIUM 0.5 MG NEB (SCH) INH (21:39)
[2017-08-12] MEDS: lamoTRIgine 100 MG TAB PO SCH (22:07)
[2017-08-12] MEDS: CETIRIZINE HCL 10 MG TAB PEG SCH (22:08)
[2017-08-12] MEDS: PHENYTOIN SUSP 100 MG/4 ML CUP PEG SCH ×2 (22:09)
[2017-08-13] VITALS: BP 166/93; PULSE 96; RESP 18; TEMP 97.5; O2SAT 97
[2017-08-13] MEDS: SODIUM CHLOR 0.9% 1000 ML INJ 1,000 ML IV SCH ×3 (02:13→21:55)
[2017-08-13] MEDS: RESP: ALBUTEROL 2.5 MG/IPRATROPIUM 0.5 MG NEB (SCH) INH ×4 (03:41→21:03)
[2017-08-13 08:00] VITALS: BP 141/88; PULSE 89; RESP 16; TEMP 97.8; O2SAT 96
[2017-08-13] MEDS: SODIUM CHLORIDE 0.9% FLUSH 10 ML FLUSH IV FLUSH SCH ×2 (08:42→21:00)
[2017-08-13] MEDS: lamoTRIgine 100 MG TAB PEG SCH (08:43)
[2017-08-13] MEDS: PHENYTOIN SUSP 100 MG/4 ML CUP PEG SCH ×3 (08:43→21:56)
[2017-08-13 09:03] LABS: AUTOMATED NEUTROPHIL # 4.6 TH/MM3 (1.8-7.7); BASOPHIL % 0.4 % (0.0-2.0); EOSINOPHIL # 0.2 TH/MM3 (0-0.4); EOSINOPHIL % 2.3 % (0.0-4.0); HEMATOCRIT 44.2 % (39.0-51.0); LYMPH % 15.8 % (9.0-44.0); LYMPHOCYTE # 1.2 TH/MM3 (1.0-4.8); MEAN PLATELET VOLUME 9.2 FL (7.0-11.0); MONO % 17.7 % (0.0-8.0); MONOCYTE # 1.3 TH/MM3 (0-0.9); NEUT % 63.8 % (16.0-70.0); PLATELET COUNT 279 TH/MM3 (150-450); RED BLOOD COUNT 4.55 MIL/MM3 (4.50-5.90); RED CELL DISTRIBUTION WIDTH 12.9 % (11.6-17.2); WHITE BLOOD COUNT 7.3 TH/MM3 (4.0-11.0)
[2017-08-13 09:33] LABS: BICARBONATE 24.2 MEQ/L (21.0-32.0); CALCIUM 8.7 MG/DL (8.5-10.1); CREATININE 0.43 MG/DL (0.60-1.30)
[2017-08-13] MEDS ORDERED: DIATRIZOATE MEGLUM/DIATRIZOATE SOD 120 ML BTL (for RAD DIAG) RECTAL ONE (11:00)
--- NOTE | 2017-08-13 11:16 | RADRPT ---
EXAM DATE/TIME: 08/13/2017 10:13 [place] COMPARISON: CT ABDOMEN & PELVIS W CONTRAST, August 12, 2017, 13:49. INDICATIONS : Evaluate colonic distention with sigmoid narrowing. FLUORO TIME: 1.2 minutes IMAGE COUNT: 20 CONTRAST: 1. [facility] MEDICAL HISTORY : Seizures. Hernia. Blind (R) eye. SURGICAL HISTORY : None. ENCOUNTER: Subsequent ACUITY: 1 day PAIN SCORE: Non-responsive. LOCATION: Bilateral Abdomen FINDINGS: Extrusion Press Supervisor film reveals G-tube in place with moderate distention of large and small bowel. Gastrografin was gently instilled throughout the entire length of the colon. There is minimal narrow ing of the distal sigmoid colon with minimal mucosal irregularity. This could represent early coliti s. Direct visualization is suggested. Post evacuation radiographs show moderate Gastrografin remaining in an atonic colon. CONCLUSION: Abnormal distal sigmoid. Direct visualization is suggested. Sukumar Mi MD FACR on August 13, 2017 at 11:10 Board Certified Radiologist. This report was verified electronically.
[2017-08-13] MEDS: PHENobarbital 32.4 MG TAB PO SCH (11:27)
[2017-08-13 12:00] VITALS: BP 138/80; PULSE 84; RESP 19; TEMP 96.1; O2SAT 98
--- NOTE | 2017-08-13 14:36 | HHI.GIFU ---
Subjective Remarks Pt resting in bed, in NAD. nonverbal. (Hannah Pimentel) Objective Vitals I&O Vital Signs Date Time Temp Pulse Resp B/P (MAP) Pulse Ox O2 Delivery O2 Flow Rate FiO2 08/13/17 12:00 96.1 84 19 138/80 (99) 98 08/13/17 08:00 97.8 89 16 141/88 (105) 96 08/13/17 00:00 97.5 96 18 166/93 (117) 97 08/12/17 20:00 97.6 95 18 178/97 (124) 97 08/12/17 16:00 98.1 95 18 98/65 (76) 94 08/12/17 15:57 91 16 137/84 (101) 96 08/12/17 15:40 91 16 137/81 (99) 96 Room Air I/O 08/12/17 08/12/17 08/12/17 08/13/17 08/13/17 08/13/17 07:00 15:00 23:00 07:00 15:00 23:00 Intake Total 1000 ml Output Total 750 ml 2500 ml Balance -750 ml -1500 ml Intake IV Total 1000 ml Output Urine Total 750 ml 2500 ml # Bowel Movements 2 Laboratory Laboratory Tests Test 08/12/17 16:40 08/13/17 07:50 Stool C. difficile Toxin (PCR) NEGATIVE Stl C. difficile Toxin Epiderm 027 PRESUMPTIVE NEGATIVE White Blood Count 7.3 Red Blood Count 4.55 Hemoglobin 15.0 Hematocrit 44.2 Mean Corpuscular Volume 97.0 Mean Corpuscular Hemoglobin 33.0 Mean Corpuscular Hemoglobin Concent 34.0 Red Cell Distribution Width 12.9 Platelet Count 279 Mean Platelet Volume 9.2 Neutrophils (%) (Auto) 63.8 Lymphocytes (%) (Auto) 15.8 Monocytes (%) (Auto) 17.7 Eosinophils (%) (Auto) 2.3 Basophils (%) (Auto) 0.4 Neutrophils # (Auto) 4.6 Lymphocytes # (Auto) 1.2 Monocytes # (Auto) 1.3 Eosinophils # (Auto) 0.2 Basophils # (Auto) 0.0 CBC Comment DIFF FINAL Differential Comment Blood Urea Nitrogen 4 Creatinine 0.43 Random Glucose 81 Calcium Level 8.7 Sodium Level 135 Potassium Level 3.5 Chloride Level 103 Carbon Dioxide Level 24.2 Anion Gap 8 Estimat Glomerular Filtration Rate 210 Imaging Last Impressions Enema w/Water Soluble 08/13/17 0000 Signed Impressions: Service Date/Time: Sunday, August 13, 2017 10:13 - CONCLUSION: Abnormal distal sigmoid. Direct visualization is suggested. Sukumar Mi MD FACR Abdomen/Pelvis CT 08/12/17 1234 Signed Impressions: Service Date/Time: Saturday, August 12, 2017 13:49 - CONCLUSION: 1. Redemonstration of diffuse colonic distention extending to the distal sigmoid colon with a 4 cm length region of sigmoid luminal narrowing concerning for malignancy or inflammatory stricture. Previously described more proximal distal colonic/proximal sigmoid luminal narrowing is not well-demonstrated on current exam. 2. No apparent associated small bowel obstruction. 3. Stable ancillary findings, as above. Ronald Torres MD Abdomen X-Ray 08/12/17 1121 Signed Impressions: Service Date/Time: Saturday, August 12, 2017 11:56 - CONCLUSION: There is diffuse gaseous distention of multiple loops of small and large bowel. This is not significantly changed compared to the prior CT scan of the abdomen and pelvis. Probable diffuse adynamic ileus is a consideration. If this requires further evaluation, a CT scan of the abdomen and pelvis could be performed if clinically indicated. Chavez Michele MD Physical Exam HEENT: PERRL; normocephalic; atraumatic; no jaundice. CHEST: CTA CARDIAC: RRR ABDOMEN: Soft, mildly distended, nontender; no hepatosplenomegaly; bs + PEG tube EXTREMITIES: No clubbing, cyanosis, or edema. SKIN: Normal; no rash; no jaundice. COMMUNITY DEVELOPMENT MANAGER: awake nonverbal not oriented (Hannah Pimentel PASSENGER SERVICE SUPERVISOR) Assessment and Plan Plan Assessment: - Colonic distention with sigmoid narrowing seen on CT- CT abdomen and pelvis with IV contrast (08/12) --> Redemonstration of diffuse colonic distention extending to the distal sigmoid colon with a 4 cm length region of sigmoid luminal narrowing concerning for malignancy or inflammatory stricture. Previously described more proximal distal colonic/proximal sigmoid luminal narrowing is not well- demonstrated on current exam. No apparent associated small bowel obstruction. Pt had recent colonoscopy in May 2017 which revealed liquid stool throughout colon, mild erythema descending and rectum, internal and external hemorrhoids. Pathology (descending colon) colonic mucosa with a prominent lymphoid aggregate (rectum) mild chronic active colitis. Currently symptoms obtained from flange machine operator: loose bowel x 2-3 days, abdominal distension for the past month, one isolated episode of vomiting last week. Otherwise, tolerating tube feeding. gastrografin enema showed abnormal distal sigmoid and recommended direct visualization. d/w Estrella Brower guardian [phone] she is agreeable to proceed with colonoscopy Plan: colonoscopy in am obtain consent Hold TF mg citrate prep via peg Monitor labs Supportive care Further recommendations to follow based on results of above Pt has been seen and examined by myself and Dr. High and this note is written on his behalf (Hannah Pimentel) Physician Comments Seen and examined , Belly less distended today. gastrografin enema reviewed. Colonoscopy planned for tomorrow. (Quintin High MD) Hannah Pimentel Aug 13, 2017 14:36 Quintin High MD Aug 13, 2017 15:19
--- NOTE | 2017-08-13 15:52 | HHI.PR ---
Subjective Remarks Baseline cognitive deficit. Patient unable to give history when seen. Plan for colonoscopy tomorrow. Objective Vital Signs Date Time Temp Pulse Resp B/P (MAP) Pulse Ox O2 Delivery O2 Flow Rate FiO2 08/13/17 12:00 96.1 84 19 138/80 (99) 98 08/13/17 08:00 97.8 89 16 141/88 (105) 96 08/13/17 00:00 97.5 96 18 166/93 (117) 97 08/12/17 20:00 97.6 95 18 178/97 (124) 97 08/12/17 16:00 98.1 95 18 98/65 (76) 94 08/12/17 15:57 91 16 137/84 (101) 96 I/O 08/12/17 08/12/17 08/12/17 08/13/17 08/13/17 08/13/17 07:00 15:00 23:00 07:00 15:00 23:00 Intake Total 1000 ml Output Total 750 ml 2500 ml Balance -750 ml -1500 ml Intake IV Total 1000 ml Output Urine Total 750 ml 2500 ml # Bowel Movements 2 Result Diagram: 08/13/17 0750 08/13/17 0750 Objective Remarks GENERAL: NAD, A&Ox0, global contractures. HEAD: Normocephalic. NECK: Supple, trachea midline. No lymphadenopathy. EYES: No scleral icterus. No injection or drainage. CARDIOVASCULAR: Regular rate and rhythm without murmurs, gallops, or rubs. RESPIRATORY: Breath sounds equal bilaterally. No accessory muscle use. GASTROINTESTINAL: Abdomen soft, non-tender, nondistended. MUSCULOSKELETAL: No cyanosis, or edema. Global contractures. SKIN: Warm and dry. NEURO: Global cognitive and neurological deficitis. A/P Problem List: (1) Seizure disorder ICD Code: G40.909 - Epilepsy, unspecified, not intractable, without status epilepticus (2) PNA (pneumonia) ICD Code: J18.9 - Pneumonia, unspecified organism (3) Urinary outflow obstruction ICD Code: N13.9 - Obstructive and reflux uropathy, unspecified Status: Acute (4) Ileus ICD Code: K56.7 - Ileus, unspecified Status: Acute Assessment and Plan 47-year-old male admitted secondary to small bowel obstruction. Baseline motor- neuro disorder. Ileus Constipation Bowel obstruction Colonoscopy tomorrow morning GI following Continue pain treatments as needed Seizure disorder mentally challenged spastic quadriplegia microcephaly Chronic encephalopathy Continue baseline treatments and support osteopenia blindness (retinal detachment) left inguinal hernia- non surgical Follow clinically Anemia Follow CBC Vit D def Continue baseline supplement DVT prophylaxis SCD. Derian Anthony MD Aug 13, 2017 15:52
[2017-08-13 16:00] VITALS: BP 137/76; PULSE 85; RESP 17; TEMP 96.5; O2SAT 95
[2017-08-13] MEDS ORDERED: MAGNESIUM CITRATE SOLN 300 ML BTL PO ONE ×2 (16:00→18:00)
[2017-08-13 20:00] VITALS: BP 149/82; PULSE 89; RESP 17; TEMP 97.5; O2SAT 95
[2017-08-13] MEDS: CETIRIZINE HCL 10 MG TAB PEG SCH (21:55)
[2017-08-13] MEDS: lamoTRIgine 100 MG TAB PO SCH (21:55)
[2017-08-14 00:38] VITALS: BP 141/98; PULSE 93; RESP 18; TEMP 96.9; O2SAT 95
[2017-08-14] MEDS: RESP: ALBUTEROL 2.5 MG/IPRATROPIUM 0.5 MG NEB (SCH) INH ×4 (03:04→20:36)
[2017-08-14 05:52] LABS: AUTOMATED NEUTROPHIL # 2.1 TH/MM3 (1.8-7.7); BASOPHIL % 0.9 % (0.0-2.0); EOSINOPHIL # 0.2 TH/MM3 (0-0.4); EOSINOPHIL % 4.2 % (0.0-4.0); HEMATOCRIT 43.9 % (39.0-51.0); HEMOGLOBIN 15.2 GM/DL (13.0-17.0); LYMPH % 29.1 % (9.0-44.0); LYMPHOCYTE # 1.2 TH/MM3 (1.0-4.8); MEAN CELL VOLUME 95.7 FL (80.0-100.0); MEAN CORPUSCULAR HEMOGLOBIN 33.2 PG (27.0-34.0); MEAN CORPUSCULAR HGB CONC 34.6 % (32.0-36.0); MEAN PLATELET VOLUME 8.9 FL (7.0-11.0); MONO % 15.7 % (0.0-8.0); MONOCYTE # 0.7 TH/MM3 (0-0.9); NEUT % 50.1 % (16.0-70.0); PLATELET COUNT 311 TH/MM3 (150-450); RED BLOOD COUNT 4.59 MIL/MM3 (4.50-5.90); RED CELL DISTRIBUTION WIDTH 12.9 % (11.6-17.2); WHITE BLOOD COUNT 4.3 TH/MM3 (4.0-11.0)
[2017-08-14 06:23] LABS: ALBUMIN 3.2 GM/DL (3.4-5.0); AST (GOT) 20 U/L (15-37); BICARBONATE 25.3 MEQ/L (21.0-32.0); BLOOD UREA NITROGEN 4 MG/DL (7-18); CALCIUM 8.3 MG/DL (8.5-10.1); CHLORIDE 106 MEQ/L (98-107); CREATININE 0.37 MG/DL (0.60-1.30); GLOMERULAR FILTRATION RATE 250 ML/MIN (>89); GLUCOSE,RANDOM 74 MG/DL (74-106); SODIUM (NA) 139 MEQ/L (136-145)
[2017-08-14 06:27] LABS: ALKALINE PHOSPHATASE 141 U/L (45-117); ALT (GPT) 30 U/L (12-78); TOTAL BILIRUBIN ADULT 0.2 MG/DL (0.2-1.0); TOTAL PROTEIN 7.3 GM/DL (6.4-8.2)
[2017-08-14 08:00] VITALS: BP 153/73; PULSE 95; RESP 16; TEMP 99.2; O2SAT 96
[2017-08-14] MEDS: PHENobarbital 32.4 MG TAB PO SCH (09:00)
[2017-08-14] MEDS ORDERED: DO NOT ADM ANY ANTICOAGULANT DRUGS PRN (11:13)
--- NOTE | 2017-08-14 11:19 | PD.PROCEDR ---
GI Procedure PROCEDURE PERFORMED colonoscopy with polypectom and Bx INDICATION FOR PROCEDURE abnormal CT of the sigmoid PROCEDURE: The procedure, risks and benefits were discussed with Mr. Melissa and informed consent was obtained. Anesthesia sedated him with Diprivan. He was placed in the left lateral decubitus position. Colonoscopy: The Pentax videoscope was introduced through the rectum and advanced to the cecum. Retroflexion was performed in the rectum. Colonic prep was fair with some stool throughout the colon FINDINGS: There was erythema in the sigmoid about 10 cm from the rectum but no narrowing was seen by up C was done and there was also small 5 mm polyp removed completely in the same area No obstruction that I could see no masses, I called the radiologist to concur with him and he thinks that there was no real mass on the CT scan or the enema it's just inflammation and may be spasm ESTIMATED BLOOD LOSS: None SPECIMENS REMOVED: Sigmoid biopsy and polypectomy COMPLICATIONS: [] IMPRESSION: No mass seen some stool throughout the colon Erythema in the rectosigmoid area most likely related to constipation Multiple polyp in the sigmoid removed PLAN: Resume tube feeding Follow up biopsy Avoid constipation Okay to discharge home from GI stand Mansi Graf MD Aug 14, 2017 11:19
--- NOTE | 2017-08-14 11:21 | HHI.GIFU ---
Subjective Remarks Patient laying in bed nonverbal seems to be comfortable Objective Vitals I&O Vital Signs Date Time Temp Pulse Resp B/P (MAP) Pulse Ox O2 Delivery O2 Flow Rate FiO2 08/14/17 08:00 99.2 95 16 153/73 (99) 96 08/14/17 00:38 96.9 93 18 141/98 (112) 95 08/13/17 20:00 97.5 89 17 149/82 (104) 95 08/13/17 16:00 96.5 85 17 137/76 (96) 95 08/13/17 12:00 96.1 84 19 138/80 (99) 98 I/O 08/13/17 08/13/17 08/13/17 08/14/17 08/14/17 08/14/17 07:00 15:00 23:00 07:00 15:00 23:00 Intake Total 1000 ml 1000 ml Output Total 2500 ml 1150 ml 1200 ml Balance -1500 ml -150 ml -1200 ml Intake Oral 0 ml IV Total 1000 ml 1000 ml Output Urine Total 2500 ml 1150 ml 1200 ml # Bowel Movements 2 1 1 Laboratory Laboratory Tests Test 08/14/17 04:45 White Blood Count 4.3 Red Blood Count 4.59 Hemoglobin 15.2 Hematocrit 43.9 Mean Corpuscular Volume 95.7 Mean Corpuscular Hemoglobin 33.2 Mean Corpuscular Hemoglobin Concent 34.6 Red Cell Distribution Width 12.9 Platelet Count 311 Mean Platelet Volume 8.9 Neutrophils (%) (Auto) 50.1 Lymphocytes (%) (Auto) 29.1 Monocytes (%) (Auto) 15.7 Eosinophils (%) (Auto) 4.2 Basophils (%) (Auto) 0.9 Neutrophils # (Auto) 2.1 Lymphocytes # (Auto) 1.2 Monocytes # (Auto) 0.7 Eosinophils # (Auto) 0.2 Basophils # (Auto) 0.0 CBC Comment DIFF FINAL Differential Comment Blood Urea Nitrogen 4 Creatinine 0.37 Random Glucose 74 Total Protein 7.3 Albumin 3.2 Calcium Level 8.3 Alkaline Phosphatase 141 Aspartate Amino Transf (AST/SGOT) 20 Alanine Aminotransferase (ALT/SGPT) 30 Total Bilirubin 0.2 Sodium Level 139 Potassium Level 3.5 Chloride Level 106 Carbon Dioxide Level 25.3 Anion Gap 8 Estimat Glomerular Filtration Rate 250 Physical Exam HEENT: PERRL; normocephalic; atraumatic; no jaundice. CHEST: CTA CARDIAC: RRR ABDOMEN: Soft, mildly distended, nontender; no hepatosplenomegaly; bs + PEG tube EXTREMITIES: No clubbing, cyanosis, or edema. SKIN: Normal; no rash; no jaundice. 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 Previously described more proximal distal colonic/proximal sigmoid luminal narrowing is not well- demonstrated on current exam. No apparent associated small bowel obstruction. Pt had recent colonoscopy in May 2017 which revealed liquid stool throughout colon, mild erythema descending and rectum, internal and external hemorrhoids. Pathology (descending colon) colonic mucosa with a prominent lymphoid aggregate (rectum) mild chronic active colitis. Currently symptoms obtained from irrigation service technician: loose bowel x 2-3 days, abdominal distension for the past month, one isolated episode of vomiting last week. Otherwise, tolerating tube feeding. gastrografin enema showed abnormal distal sigmoid and recommended direct visualization. d/w Estrella Brower guardian [phone] she is agreeable to proceed with colonoscopy On 07/12/2017 patient had questionable narrowing of the sigmoid on CT scan of the colon, patient had colonoscopy today IMPRESSION: No mass seen some stool throughout the colon Erythema in the rectosigmoid area most likely related to constipation Multiple polyp in the sigmoid removed PLAN: Resume tube feeding Follow up biopsy Avoid constipation Okay to discharge home from GI stand Mansi Graf MD Aug 14, 2017 11:21
[2017-08-14] MEDS: PHENYTOIN SUSP 100 MG/4 ML CUP PEG SCH ×3 (11:58→21:21)
[2017-08-14] MEDS: SODIUM CHLORIDE 0.9% FLUSH 10 ML FLUSH IV FLUSH SCH ×2 (11:59→21:22)
[2017-08-14 12:00] VITALS: BP 125/69; PULSE 79; RESP 17; TEMP 96.9; O2SAT 98
[2017-08-14] MEDS: lamoTRIgine 100 MG TAB PEG SCH (12:01)
[2017-08-14] MEDS: SODIUM CHLOR 0.9% 1000 ML INJ 1,000 ML IV SCH ×2 (12:02→21:23)
[2017-08-14 16:00] VITALS: BP 159/91; PULSE 86; RESP 19; TEMP 96.8; O2SAT 95
[2017-08-14 16:51] VITALS: O2SAT 94
--- NOTE | 2017-08-14 17:41 | HHI.PR ---
Subjective Remarks Baseline cognitive deficit. Patient unable to give history when seen. Colonoscopy completed today. Patient did well. Stool seen as a possible obstruction and contributor to SBO/ileus. Patient is doing better. Tube feeds reinitiated. Objective Vital Signs Date Time Temp Pulse Resp B/P (MAP) Pulse Ox O2 Delivery O2 Flow Rate FiO2 08/14/17 16:51 94 08/14/17 16:00 96.8 86 19 159/91 (113) 95 08/14/17 12:00 96.9 79 17 125/69 (87) 98 08/14/17 11:20 96.9 86 20 132/77 (95) 97 08/14/17 08:00 99.2 95 16 153/73 (99) 96 08/14/17 00:38 96.9 93 18 141/98 (112) 95 08/13/17 20:00 97.5 89 17 149/82 (104) 95 I/O 08/13/17 08/13/17 08/13/17 08/14/17 08/14/17 08/14/17 07:00 15:00 23:00 07:00 15:00 23:00 Intake Total 1000 ml 1000 ml 350 ml Output Total 2500 ml 1150 ml 1200 ml Balance -1500 ml -150 ml -1200 ml 350 ml Intake Oral 0 ml IV Total 1000 ml 1000 ml 350 ml Output Urine Total 2500 ml 1150 ml 1200 ml # Bowel Movements 2 1 1 Result Diagram: 08/14/175 08/14/17444 Objective Remarks GENERAL: NAD, A&Ox0, global contractures. HEAD: Normocephalic. NECK: Supple, trachea midline. No lymphadenopathy. EYES: No scleral icterus. No injection or drainage. CARDIOVASCULAR: Regular rate and rhythm without murmurs, gallops, or rubs. RESPIRATORY: Breath sounds equal bilaterally. No accessory muscle use. GASTROINTESTINAL: Abdomen soft, non-tender, nondistended. MUSCULOSKELETAL: No cyanosis, or edema. Global contractures. SKIN: Warm and dry. NEURO: Global cognitive and neurological deficitis. A/P Problem List: (1) Seizure disorder ICD Code: G40.909 - Epilepsy, unspecified, not intractable, without status epilepticus (2) PNA (pneumonia) ICD Code: J18.9 - Pneumonia, unspecified organism (3) Urinary outflow obstruction ICD Code: N13.9 - Obstructive and reflux uropathy, unspecified Status: Acute (4) Ileus ICD Code: K56.7 - Ileus, unspecified Status: Acute Assessment and Plan 47-year-old male admitted secondary to small bowel obstruction. Baseline motor- neuro disorder. Tube feeds have been reinitiated. Now that his baseline status is just resumed, monitor for stability and consider discharge tomorrow. Ileus Constipation Bowel obstruction Colonoscopy shows no acute pathology, stool:. GI following Continue pain treatments as needed Seizure disorder mentally challenged spastic quadriplegia microcephaly Chronic encephalopathy Continue baseline treatments and support osteopenia blindness (retinal detachment) left inguinal hernia- non surgical Follow clinically Anemia Follow CBC Vit D def Continue baseline supplement DVT prophylaxis SCD. Discharge planning monitor for stability and consider discharge tomorrow. Derian Anthony MD Aug 14, 2017 17:41
[2017-08-14 20:00] VITALS: BP 140/83; PULSE 90; RESP 20; TEMP 96.5; O2SAT 97
[2017-08-14] MEDS: lamoTRIgine 100 MG TAB PO SCH (21:20)
[2017-08-14] MEDS: CETIRIZINE HCL 10 MG TAB PEG SCH (21:20)
[2017-08-15 00:51] VITALS: BP 146/82; PULSE 86; RESP 20; TEMP 96.9; O2SAT 97
[2017-08-15] MEDS: RESP: ALBUTEROL 2.5 MG/IPRATROPIUM 0.5 MG NEB (SCH) INH ×3 (03:34→15:50)
[2017-08-15 07:36] LABS: AUTOMATED NEUTROPHIL # 2.2 TH/MM3 (1.8-7.7); EOSINOPHIL # 0.3 TH/MM3 (0-0.4); EOSINOPHIL % 6.8 % (0.0-4.0); HEMATOCRIT 45.4 % (39.0-51.0); HEMOGLOBIN 15.6 GM/DL (13.0-17.0); LYMPH % 26.1 % (9.0-44.0); LYMPHOCYTE # 1.1 TH/MM3 (1.0-4.8); MEAN CELL VOLUME 96.2 FL (80.0-100.0); MEAN CORPUSCULAR HEMOGLOBIN 33.1 PG (27.0-34.0); MEAN CORPUSCULAR HGB CONC 34.4 % (32.0-36.0); MEAN PLATELET VOLUME 8.8 FL (7.0-11.0); MONO % 16.6 % (0.0-8.0); MONOCYTE # 0.7 TH/MM3 (0-0.9); NEUT % 49.5 % (16.0-70.0); PLATELET COUNT 326 TH/MM3 (150-450); RED BLOOD COUNT 4.72 MIL/MM3 (4.50-5.90); RED CELL DISTRIBUTION WIDTH 12.8 % (11.6-17.2); WHITE BLOOD COUNT 4.4 TH/MM3 (4.0-11.0)
[2017-08-15 08:00] VITALS: BP 131/80; PULSE 94; RESP 17; TEMP 97.2; O2SAT 99
[2017-08-15] MEDS: PHENYTOIN SUSP 100 MG/4 ML CUP PEG SCH (08:00)
[2017-08-15] MEDS: PHENobarbital 32.4 MG TAB PO SCH (08:00)
[2017-08-15] MEDS: SODIUM CHLORIDE 0.9% FLUSH 10 ML FLUSH IV FLUSH SCH (08:01)
[2017-08-15] MEDS: lamoTRIgine 100 MG TAB PEG SCH (08:01)
[2017-08-15 08:43] LABS: ALBUMIN 3.2 GM/DL (3.4-5.0); ALT (GPT) 27 U/L (12-78); AST (GOT) 22 U/L (15-37); BICARBONATE 26.7 MEQ/L (21.0-32.0); BLOOD UREA NITROGEN 5 MG/DL (7-18); CALCIUM 8.4 MG/DL (8.5-10.1); CHLORIDE 102 MEQ/L (98-107); GLOMERULAR FILTRATION RATE 177 ML/MIN (>89); GLUCOSE,RANDOM 110 MG/DL (74-106); SODIUM (NA) 137 MEQ/L (136-145)
[2017-08-15 08:44] LABS: ALKALINE PHOSPHATASE 140 U/L (45-117); TOTAL BILIRUBIN ADULT 0.2 MG/DL (0.2-1.0); TOTAL PROTEIN 7.4 GM/DL (6.4-8.2)
[2017-08-15 09:20] VITALS: O2SAT 94
[2017-08-15 12:00] VITALS: BP 118/68; PULSE 93; RESP 17; TEMP 96.2; O2SAT 96
--- NOTE | 2017-08-15 13:47 | HHI.DS ---
Discharge Summary Admission Date Aug 13, 2017 at 10:34 Discharge Date: Aug 15, 2017 Admitting Diagnosis bowel obstruction/ileus (1) Ileus ICD Code: K56.7 - Ileus, unspecified Diagnosis: Principal Status: Acute Procedures Colonoscopy Brief History - From Admission hx from [facility] aide at the bedside, ER MD, and [facility] transfer notes. 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 Not able to provide any history at all. The 8 at the bedside reported that she cares for him 5 days a week, 8 hours a day usually. She reports that patient has not urinated for the past 24 hours and at [facility], the nurses tried to place a Moore catheter and was unable to get urine from there. Therefore they have sent him to the hospital. In the emergency room, patient was found to have bladder distention and Moore catheter was placed after which 750 cc of urine drained immediately. According to the guest service aide from [facility], patient also had 1 times episode of vomiting about a week ago. However none since then. She does not know the color of the vomitus because she was not present at the time of it. She stated she was caring for another patient at the time. As far as she knows, patient did not have any fever. She reports the patient was still making bowel movements there although it was mostly streaks. ER nurse also reported the patient did make a bowel movement once while in ER. Patient's baseline status is noncommunicative and caregiver at the bedside stated that she is not sure whether he can make sounds or facial expressions and responds to pain. There for review of system is quite limited. Patient usually gets G-tube feedings. And as far as she knows, there was no report of residuals and the feeding from nursing staff. She denies any bed sores. She reports he usually sits on the wheelchair and also is turned frequently there. CBC/BMP: 08/15/17 0536 08/15/17 0536 Significant Findings Laboratory Tests Test 08/12/17 16:40 08/13/17 07:50 08/14/17 04:45 08/15/17 05:36 Monocytes (%) (Auto) 17.7 % (0.0-8.0) 15.7 % (0.0-8.0) 16.6 % (0.0-8.0) Monocytes # (Auto) 1.3 TH/MM3 (0-0.9) Blood Urea Nitrogen 4 MG/DL (7-18) 4 MG/DL (7-18) 5 MG/DL (7-18) Creatinine 0.43 MG/DL (0.60-1.30) 0.37 MG/DL (0.60-1.30) 0.50 MG/DL (0.60-1.30) Sodium Level 135 MEQ/L (136-145) Eosinophils (%) (Auto) 4.2 % (0.0-4.0) 6.8 % (0.0-4.0) Albumin 3.2 GM/DL (3.4-5.0) 3.2 GM/DL (3.4-5.0) Calcium Level 8.3 MG/DL (8.5-10.1) 8.4 MG/DL (8.5-10.1) Alkaline Phosphatase 141 U/L (45-117) 140 U/L (45-117) Random Glucose 110 MG/DL (74-106) Hospital Course Mr. Melissa is a 47-year-old male. He has chronic cognitive and motor debility. At baseline he is bedridden with tube feeds. He is unable to provide any history but came in secondary to signs of pain. He was found to have an ileus versus small bowel obstruction. This was treated conservatively and he had a colonoscopy while here which cleared up some stool retained in the colon. He's been doing well ever since and is tolerating tube feeds now without signs of pain. He appears back to baseline and he is medically stable for discharge to prior living arrangement at [facility]. Cleared for discharge today. Pt Condition on Discharge: Stable Discharge Disposition: ACLF/LISA Discharge Time: > 30 minutes Discharge Instructions DIET: Follow Instructions for: On Tube Feeding Activities you can perform: Continue Bedrest Follow up Referrals: PCP Follow-up - 2 Weeks Continued Medications: Yqeumlmg-Shudyicag-Limitcibodw Liq (Antacid Anti-Gas Regular Liq) 200-200-20 Mg/ 5 Ml Susp 15 ML PO Q4HR, ML 0 Refills Take between meals or as directed. Shake well. Do not exceed 120 mL/24 hrs. Ztyfjeqd-Qdwccsinn-Mimmlyvgxar Liq (Haylee-Lanta Liq) 200-200-20 Mg/5 Ml Susp 7.5 ML PEG Q4HR Bismuth Subsalicylate Liq (Pepto-Bismol Liq) 262 Mg/15 Ml Susp 30 ML PO PRN for INDIGESTION OR UPSET STOMACH, #1 BOTTLE 0 Refills Do not exceed 8 doses (240 mL or 16 tbsp) in 24 hours. Calcium Carbonate-Vitamin D Chew (Caltrate 600+D Chew) 600-400 Mg-Unit Chew 1 TAB PEG BID for Nutritional Supplement, EA 0 Refills Cetirizine (Cetirizine) 10 Mg Chew 10 MG PEG HS for Allergies, TAB 0 Refills Chlorhexidine Gluconate (Mouth) Liq (Chlorhexidine Gluconate (Mouth) Liq) 0.12% Soln 15 ML SWISH-SPIT BID, #473 ML 0 Refills Use an oral hygiene brush to apply. Chlorpheniramine-Pseudoephedrine (Sudogest Sinus & Allergy) 4-60 Mg Tab 1 TAB PEG Q4H PRN for NASAL CONGESTION, TAB 0 Refills Ipratropium-Albuterol Neb (Duoneb) 0.5-2.5 Mg/3 Ml Neb 1 NEBULE INH Q6HR NEB for Breathing Treatment, #120 NEBULE 0 Refills Lamotrigine (Lamotrigine) 100 Mg Tab 300 MG PO HS for Control Seizures, #60 TAB 0 Refills Lamotrigine (Lamotrigine) 100 Mg Tab 250 MG PEG DAILY for Control Seizures, #30 TAB 0 Refills Multiple Vitamins W/ Minerals (Thera-M) 1 Tab 1 TAB PEG DAILT for Nutritional Supplement, TAB 0 Refills Nutritional Supplements (Jevity 1.5 Jerry) 0.06 Gram-1.5 Kcal/Ml Liq 45 ML G-TUBE DAILY for Nutritional Supplement, #1 BOTTLE Nutritional Supplements (Jevity 1.5 Jerry) 0.06 Gram-1.5 Kcal/Ml Liq 75 ML PEG HOUR Phenobarbital (Phenobarbital) 60 Mg Tab 129.6 MG PO DAILY for Control Seizures, #60 TAB 0 Refills Phenytoin Liq (Phenytoin Liq) 125 Mg/5 Ml Bianca 100 MG PEG HS for Control Seizures, #237 ML 0 Refills Phenytoin Liq (Phenytoin Liq) 125 Mg/5 Ml Bianca 50 MG PEG Q12HR for Control Seizures, #237 ML 0 Refills Polyethylene Glycol 3350 Powder (Polyethylene Glycol 3350 Powder) 17 Gram Pow 17 GM PEG BID for Constipation, #1 BOTTLE 0 Refills Polyvinyl Alcohol Opth Drops (Artificial Tears Opth Drops) 1.4% Soln 1-2 DROP EACH EYE PRN PRN for DRY EYE, BOTTLE 0 Refills Pseudoephedrine (Pseudoephedrine) 60 Mg Tab 60 MG PEG Q6H PRN for NASAL CONGESTION, TAB 0 Refills Tolnaftate Topical (Tolnaftate Topical) 1 % Powd 1 APPLIC TOPICAL BID for Fungal Infection, #1 CAN 0 Refills Vitamins C & E (Cranberry Urinary Comfort) 1 Cap 1 CAP PEG DAILY for Urinary Symptom Managemen, CAP 0 Refills [protein powder] () 1 Derian Anthony MD Aug 15, 2017 13:47
[2017-08-15 15:50] VITALS: O2SAT 97
== END 2017-08-15 16:13 | DRG 388 ==
LOC: NEPC 10:47 → NEDA 13:54 → N07B 16:07 → OBSVTOIN 08-13 10:34
PROVIDERS: ADMIT Hospitalist; ATTEND Hospitalist
PROC: 0DBN8ZX Excision of Sigmoid Colon, Via Natural or Artificial Opening Endoscopic, Diagnostic (ICD-10-PCS; 2017-08-14)
PROC: 0DBP8ZZ Excision of Rectum, Via Natural or Artificial Opening Endoscopic (ICD-10-PCS; principal; 2017-08-14 10:23)
DX: K56.7 Ileus, unspecified (principal); G93.40 Encephalopathy, unspecified; J18.9 Pneumonia, unspecified organism; G80.0 Spastic quadriplegic cerebral palsy; H33.21 Serous retinal detachment, right eye; F79 Unspecified intellectual disabilities; G40.909 Epilepsy, unspecified, not intractable, without status epilepticus; N13.9 Obstructive and reflux uropathy, unspecified; D12.5 Benign neoplasm of sigmoid colon; E55.9 Vitamin D deficiency, unspecified; K40.90 Unilateral inguinal hernia, without obstruction or gangrene, not specified as recurrent; K52.9 Noninfective gastroenteritis and colitis, unspecified; K56.609 Unspecified intestinal obstruction, unspecified as to partial versus complete obstruction; K64.4 Residual hemorrhoidal skin tags; K64.8 Other hemorrhoids; M85.80 Other specified disorders of bone density and structure, unspecified site; Z74.01 Bed confinement status; Z93.1 Gastrostomy status; Q02 Microcephaly
CPT/HCPCS: 51702; 74019; 74177; 74270; 80048; 80053; 81001; 85025; 87493; 88305; 94640; 94664; 96360; 96361; G0378; J7030; Q9963; Q9967